=== PATIENT | female | born 1950 | race Caucasian/White ===

== ENCOUNTER 2019-01-15 14:30 | Inpatient (IN) | payer MEDICARE, BC ==
[~2019-01-15] VITALS: Ht 167.6 cm; Wt 71.9 kg
[2019-01-15] VITALS (8 sets, daily range): BP systolic 114–125; BP diastolic 53–62
[~2019-01-15 14:30] MED LIST: LIDOcaine 2% (20 mg/ml) 5ml cardiac syringe ONE; LISI40TA4 PO; LOP25T PO; MAGNESIUM SULFATE 4 MEQ/ML (5gm/10ml) injection ONE; NOR5T PO; PRAV10TA38 PO; SUFENTANIL CITRATE 50 MCG/ML 2ml ampule IV ONE; albumin (human) 25% 100 ML IV solution IV ONE; aminocaproic acid 250 MG/1 ML inj. ONE; calcium chloride 100 MG/1 ML inj IV ONE; heparin 1,000 units/ml 10ml inj ONE; heparin 10,000 units/1 ML INJ ONE; methylPREDNISolone sod. succ. 500mg inj ONE; midazolam 2 mg/2 ml injection ONE; phenylephrine 10mg/ml inj. ONE; potassium Cl 2 mEq/ml inj IV ONE; sodium bicarbonate (8.4%) 1 mEq/ml syringe ONE
[2019-01-15] MEDS ORDERED: INSULIN R 100 UNIT in NS 100ML (1 UNIT/1 ML) BAG IV ONE (14:45)
[2019-01-15] MEDS ORDERED: DOPamine/D5W 400mg/250ml bag IV ONE (14:45)
[2019-01-15] MEDS ORDERED: protamine sulf. 10mg/ml inj. IV ONE (14:45)
[2019-01-15] MEDS ORDERED: rocuronium 10mg/ml inj IV ONE (14:45)
[2019-01-15] MEDS ORDERED: nitroGLYCERIN in D5W 50mg/250ml (Tridil) infusion IV ONE (14:45)
[2019-01-15] MEDS ORDERED: isoflurane 100ml inhalation liquid IH ONE (14:45)
[2019-01-15] MEDS: insulin regular, human 100 UNIT in normal saline 100ml IV soln 99 ML IV SCH ×2 (15:45)
[2019-01-15] MEDS ORDERED: dextrose 50%-water 50ml dispensing syringe IV PRN ×2 (15:45→19:35)
[2019-01-15] MEDS ORDERED: insulin Lispro (HumaLOG) vial - multi-dose SQ PRN (15:50)
[2019-01-15] MEDS: esmolol/sodium cl bag 250 ML IV SCH (15:55)
[2019-01-15 15:56] LABS: ABG BASE EXCESS -3.2 mmol/L (-2.0-3.0); ABG HCO3 20.8 mmol/L (22.0-26.0); ABG OXYGEN SATURATION 99.8 % (95-98); ABG PCO2 33.9 mmHg (35.0-45.0); ABG PH 7.406 (7.350-7.450); ABG PO2 349.6 mmHg (60.0-100.0); CL (ABG) 107 mmol/L (99-107); FCOHb 0.2 % (0.5-1.5); FO2Hb 99.6 % (94-100); GLUCOSE (ABG) 107 mg/dl (70-105); IONIZED CA (ABG) 1.08 mmol/L (1.03-1.32); K (ABG) 5.8 mmol/L (3.3-5.1); NA (ABG) 136 mmol/L (135-145); TOTAL HEMOGLOBIN 11.4 G/dl (12.0-16.0)
[2019-01-15 16:45] LABS: ABG HCO3 22.3 mmol/L (22.0-26.0); ABG OXYGEN SATURATION 99.1 % (95-98); ABG PCO2 35.6 mmHg (35.0-45.0); ABG PH 7.415 (7.350-7.450); ABG PO2 364.6 mmHg (60.0-100.0); CL (ABG) 104 mmol/L (99-107); FCOHb 0.4 % (0.5-1.5); FMetHb 0.6 % (0.3-1.12); FO2Hb 98.1 % (94-100); GLUCOSE (ABG) 106 mg/dl (70-105); IONIZED CA (ABG) 0.89 mmol/L (1.03-1.32); NA (ABG) 134 mmol/L (135-145); TOTAL HEMOGLOBIN 7.2 G/dl (12.0-16.0)
[2019-01-15] MEDS ORDERED: ipratropium/albuterol 3ml nebule IH PRN (17:30)
[2019-01-15 17:46] LABS: ABG BASE EXCESS VENOUS -8.5 mmol/L; ABG HCO3 VENOUS 21.3 mmol/L; ABG PCO2 VENOUS 71.4 mmHg; ABG PO2 VENOUS 56.5 mmHg; CL (ABG) 101 mmol/L (99-107); FCOHb VENOUS 0.3 %; FHHb VENOUS 18.8 %; FMetHb VENOUS 0.8 %; FO2Hb VENOUS 80.1 %; GLUCOSE (ABG) 184 mg/dl (70-105); IONIZED CA (ABG) 0.82 mmol/L (1.03-1.32); K (ABG) 5.9 mmol/L (3.3-5.1); NA (ABG) 148 mmol/L (135-145); TOTAL HEMOGLOBIN 8.8 G/dl (12.0-16.0)
[2019-01-15 18:01] LABS: ABG BASE EXCESS -4.9 mmol/L (-2.0-3.0); ABG HCO3 19.3 mmol/L (22.0-26.0); ABG OXYGEN SATURATION 99.1 % (95-98); ABG PCO2 31.9 mmHg (35.0-45.0); ABG PH 7.399 (7.350-7.450); ABG PO2 432.1 mmHg (60.0-100.0); CL (ABG) 101 mmol/L (99-107); FCOHb 0.2 % (0.5-1.5); FMetHb 0.8 % (0.3-1.12); FO2Hb 98.1 % (94-100); GLUCOSE (ABG) 181 mg/dl (70-105); IONIZED CA (ABG) 1.29 mmol/L (1.03-1.32); K (ABG) 5.7 mmol/L (3.3-5.1); NA (ABG) 130 mmol/L (135-145)
[2019-01-15 18:10] LABS: ABG BASE EXCESS -1.4 mmol/L (-2.0-3.0); ABG HCO3 21.3 mmol/L (22.0-26.0); ABG OXYGEN SATURATION 99.3 % (95-98); ABG PCO2 28.2 mmHg (35.0-45.0); ABG PH 7.497 (7.350-7.450); ABG PO2 416.9 mmHg (60.0-100.0); CL (ABG) 100 mmol/L (99-107); FCOHb 0.3 % (0.5-1.5); FMetHb 0.6 % (0.3-1.12); FO2Hb 98.4 % (94-100); GLUCOSE (ABG) 151 mg/dl (70-105); IONIZED CA (ABG) 1.07 mmol/L (1.03-1.32); K (ABG) 5.9 mmol/L (3.3-5.1); NA (ABG) 134 mmol/L (135-145)
[2019-01-15 18:56] LABS: ABG BASE EXCESS VENOUS -1.9 mmol/L; ABG HCO3 VENOUS 23.9 mmol/L; ABG PCO2 VENOUS 45.6 mmHg; ABG PO2 VENOUS 33.5 mmHg; CL (ABG) 104 mmol/L (99-107); FCOHb VENOUS 0.5 %; FHHb VENOUS 37.8 %; FMetHb VENOUS 0.7 %; GLUCOSE (ABG) 140 mg/dl (70-105); IONIZED CA (ABG) 0.98 mmol/L (1.03-1.32); K (ABG) 4.9 mmol/L (3.3-5.1); NA (ABG) 138 mmol/L (135-145); TOTAL HEMOGLOBIN 10.4 G/dl (12.0-16.0)
[2019-01-15] MEDS ORDERED: HUMAN PROTHROMBIN COMPLEX PCC IV ONE (19:00)
[2019-01-15] MEDS ORDERED: NORepinephrine 8mg/ 250ml NS 250 ML IV PRN (19:31)
[2019-01-15] MEDS ORDERED: nitroGLYCERIN-Tridil 50MG/D5W 250 ML IV PRN (19:31)
[2019-01-15] MEDS ORDERED: niCARDipine-NS 40mg/200ml IVPB 200 ML IV PRN (19:31)
[2019-01-15] MEDS ORDERED: Neutra Phos packet PO PRN (19:35)
[2019-01-15] MEDS ORDERED: potassium Cl 20 mEq SR tablet PO PRN (19:35)
[2019-01-15] MEDS ORDERED: pantoprazole 40 MG vial IV ONE (19:35)
[2019-01-15] MEDS ORDERED: HYDROcodone/acetaminophen 10/325mg tab PO PRN ×2 (19:35)
[2019-01-15] MEDS ORDERED: magnesium 4gm in 100ml NS 100 ML IV PRN (19:35)
[2019-01-15] MEDS ORDERED: magnesium hydroxide 30ml (MOM) UD suspension PO PRN (19:35)
[2019-01-15] MEDS ORDERED: insulin regular, human inj. 100 UNITS in normal saline 100ml IV soln 100 ML IV SCH ×2 (19:35)
[2019-01-15] MEDS ORDERED: ondansetron/PF 4mg/2ml inj IV PRN (19:35)
[2019-01-15] MEDS ORDERED: acetaminophen 325mg tablet PO PRN (19:35)
[2019-01-15] MEDS ORDERED: metoclopramide 5 mg/ml inj IV PRN (19:35)
[2019-01-15] MEDS ORDERED: sodium phosphate inj. 15 MMOL in dextrose 5%-water 150 ML IV PRN (19:35)
[2019-01-15] MEDS ORDERED: sodium phosphate inj. 30 MMOL in dextrose 5%-water 250 ML IV PRN (19:35)
[2019-01-15] MEDS ORDERED: mupirocin 2% ointment 22GM NS SCH (20:00)
[2019-01-15] MEDS ORDERED: docusate sod 100mg capsule PO SCH (20:00)
--- NOTE | 2019-01-15 20:00 | NUR ---
Received to room 2014, accompanied by MDs and surgical crew. Placed on ventilator, to cardiac/vascular sonographer, arterial line and PA line pressure monitored. Chest tubes to suction at 20 cm. Burton cath to gravity drainage. Dressings are dry and intact. See assessment record. All vasoactive drugs are infusing via central line.
[2019-01-15] MEDS ORDERED: midazolam 100mg in NS 100ml 100 ML IV PRN (20:36)
[2019-01-15] MEDS: FENTANYL-0.9 % NACL/PF 100 ML IV PRN (20:48)
[2019-01-15 20:52] LABS: BASOPHILS % (AUTO) 0.2 % (0-1); EOSINOPHILS % (AUTO) 0.4 % (0-6); LYMPHOCYTES # (AUTO) 0.2 X10'3 (1.1-4.8); LYMPHOCYTES % (AUTO) 3.8 % (21-51); MEAN CORPUSCULAR HEMOGLOBIN 32.5 PG (27.0-31.0); MEAN CORPUSCULAR HGB CONC 34.3 g/dL (33.0-36.5); MEAN CORPUSCULAR VOLUME 94.8 FL (78-98); MEAN PLATELET VOLUME 7.6 FL (7.4-10.4); MONOCYTES # (AUTO) 0.4 X10'3 (0-0.9); MONOCYTES % (AUTO) 7.6 % (2-12); NEUTROPHILS # (AUTO) 4.9 X10'3 (1.8-7.7); PLATELET COUNT 94 X10'3 (140-440); RED BLOOD COUNT 1.84 X10'6 (4.20-5.60); RED CELL DISTRIBUTION WIDTH 14.3 % (11.5-14.5); WHITE BLOOD COUNT 5.6 X10'3 (4.5-11.0)
[2019-01-15 20:59] LABS: ALANINE AMINOTRANSFERASE 59 U/L (12-78); ALBUMIN/GLOBULIN RATIO 1.2 (1.1-1.5); ALKALINE PHOSPHATASE 28 IU/L (46-116); ANION GAP 12 (8-16); ASPARTATE AMINO TRANSFERASE 75 U/L (10-37); BILIRUBIN,TOTAL 0.8 MG/DL (0.1-1.0); BLOOD UREA NITROGEN 20 MG/DL (7-18); BUN/CREATININE RATIO 11.8 (6.6-38.0); CALCIUM 7.7 MG/DL (8.5-10.1); CHLORIDE 110 MMOL/L (99-107); GLUCOSE 85 MG/DL (70-104); MAGNESIUM 3.2 MG/DL (1.5-2.4); SODIUM 146 MMOL/L (135-145); TOTAL CARBON DIOXIDE 24.4 MMOL/L (24-32); TOTAL PROTEIN 3.7 G/DL (6.4-8.2); eGFR 30 ML/MIN
[2019-01-15 21:02] LABS: HEMATOCRIT 17.4 % (35.0-45.0)
[2019-01-15 21:05] LABS: ABG BASE EXCESS 0.3 mmol/L (-2.0-3.0); ABG HCO3 23.2 mmol/L (22.0-26.0); ABG OXYGEN SATURATION 98.2 % (95-98); ABG PCO2 (T) 26.9 mmHg (32.0-45.0); ABG PH (T) 7.546 (7.350-7.450); ABG PO2 (T) 139.4 mmHg (83-108); FCOHb 0.3 % (0.5-1.5); FMetHb 0.1 % (0.3-1.12); FO2Hb 97.8 % (94-100); MINUTE VOLUME 6 L/min; PATIENT TEMPERATURE 34.9; PEEP 5 cm H2O; RESPIRATORY RATE 12 b/min; RESPIRATORY RATE (OBSERVED) 12 b/min; TIDAL VOLUME 600 mL; TOTAL HEMOGLOBIN 6.4 G/dl (12.0-16.0)
[2019-01-15 21:37] LABS: INR 1.3 INR; PARTIAL THROMBOPLASTIN TIME 32 SECONDS (22-32)
[2019-01-15] MEDS: potassium Cl 20mEq/100mL bag 100 ML IV PRN ×2 (22:05→23:17)
[2019-01-15] MEDS: docusate sodium 100mg/10ml UD cup PO SCH (22:11)
[2019-01-15] MEDS: vancomycin/NS 1 GM ADD-VANTAGE 250 ML IV SCH (22:11)
[2019-01-15] MEDS: sodium chloride 0.45% 1,000 ML IV SCH (22:12)
[2019-01-15] MEDS: mupirocin 2% nasal ointment 1gm UD NS SCH (22:34)
[2019-01-15] MEDS: gabapentin 300mg capsule PO SCH (22:36)
[2019-01-15] MEDS: nitroPRUSSIDE in NS 100 ML IV SCH (23:28)
[2019-01-16] VITALS (26 sets, daily range): BP systolic 100–139; BP diastolic 44–69
[2019-01-16] MEDS: ceFAZolin 1GM/D5W- ADD-VANTAGE 50 ML IV SCH ×3 (00:32→16:18)
[2019-01-16] MEDS: esmolol/sodium cl bag 250 ML IV SCH ×3 (02:20→20:40)
[2019-01-16 02:21] LABS: BASOPHILS % (AUTO) 0.1 % (0-1); EOSINOPHILS % (AUTO) 0 % (0-6); HEMATOCRIT 27.2 % (35.0-45.0); HEMOGLOBIN 9.4 g/dl (12.0-16.0); LYMPHOCYTES # (AUTO) 0.3 X10'3 (1.1-4.8); LYMPHOCYTES % (AUTO) 3.5 % (21-51); MEAN CORPUSCULAR HEMOGLOBIN 31.3 PG (27.0-31.0); MEAN CORPUSCULAR HGB CONC 34.5 g/dL (33.0-36.5); MEAN CORPUSCULAR VOLUME 90.8 FL (78-98); MEAN PLATELET VOLUME 8.1 FL (7.4-10.4); MONOCYTES # (AUTO) 0.8 X10'3 (0-0.9); MONOCYTES % (AUTO) 9.2 % (2-12); NEUTROPHILS # (AUTO) 7.5 X10'3 (1.8-7.7); NEUTROPHILS % (AUTO) 87.2 % (42-75); PLATELET COUNT 92 X10'3 (140-440); RED BLOOD COUNT 2.99 X10'6 (4.20-5.60); RED CELL DISTRIBUTION WIDTH 15.2 % (11.5-14.5); WHITE BLOOD COUNT 8.6 X10'3 (4.5-11.0)
[2019-01-16] MEDS: albumin (Human) 5% 250ml 250 ML IV PRN ×3 (02:21→13:51)
[2019-01-16 02:41] LABS: INR 1.2 INR; PARTIAL THROMBOPLASTIN TIME 31 SECONDS (22-32)
[2019-01-16 02:47] LABS: ALANINE AMINOTRANSFERASE 86 U/L (12-78); ALBUMIN 2.3 G/DL (3.4-5.0); ALBUMIN/GLOBULIN RATIO 1.2 (1.1-1.5); ALKALINE PHOSPHATASE 34 IU/L (46-116); ANION GAP 8 (8-16); ASPARTATE AMINO TRANSFERASE 123 U/L (10-37); BILIRUBIN,TOTAL 1.2 MG/DL (0.1-1.0); BLOOD UREA NITROGEN 25 MG/DL (7-18); BUN/CREATININE RATIO 13.8 (6.6-38.0); CHLORIDE 112 MMOL/L (99-107); CREATININE 1.81 MG/DL (0.40-0.90); GLUCOSE 114 MG/DL (70-104); POTASSIUM 4.8 MMOL/L (3.5-5.1); SODIUM 145 MMOL/L (135-145); TOTAL CARBON DIOXIDE 25.4 MMOL/L (24-32); TOTAL PROTEIN 4.3 G/DL (6.4-8.2); eGFR 28 ML/MIN
[2019-01-16 03:11] LABS: MAGNESIUM 3.1 MG/DL (1.5-2.4); PHOSPHORUS 2.7 MG/DL (2.3-4.5)
[2019-01-16 03:55] LABS: ABG BASE EXCESS 0.7 mmol/L (-2.0-3.0); ABG HCO3 24.8 mmol/L (22.0-26.0); ABG OXYGEN SATURATION 94.2 % (95-98); ABG PCO2 (T) 36.4 mmHg (32.0-45.0); ABG PH (T) 7.448 (7.350-7.450); ABG PO2 (T) 73.6 mmHg (83-108); FCOHb 0.3 % (0.5-1.5); FMetHb 0.3 % (0.3-1.12); FO2Hb 93.6 % (94-100); MINUTE VOLUME 5 L/min; PATIENT TEMPERATURE 36.3; PEEP 5 cm H2O; RESPIRATORY RATE 8 b/min; RESPIRATORY RATE (OBSERVED) 8 b/min; TIDAL VOLUME 600 mL; TOTAL HEMOGLOBIN 9.6 G/dl (12.0-16.0)
--- NOTE | 2019-01-16 06:38 | NUR ---
Problems reprioritized. Patient report given, questions answered & plan of care reviewed with Paty NEUMANN. Latest CI 2.0. Pt given 2PRBC and 2 Alb in my 12 hr shift. No blood or electrolyte replacement needed at 6hr lab draw. Sedation off at 0130, remains off. Pt moves extremities with painful stimuli. Grimaces with oral care, has not woken up enough to follow commands.
--- NOTE | 2019-01-16 06:56 | NUR ---
Patient in room CICU 2013. I have received report from NEL Huffman and had the opportunity to ask questions and assume patient care.
[2019-01-16] MEDS: atorvastatin 10mg tablet PO SCH (07:27)
[2019-01-16] MEDS: docusate sodium 100mg/10ml UD cup PO SCH ×2 (07:27→20:40)
[2019-01-16] MEDS: aspirin 325mg tablet, delayed-release (Ecotrin) PO SCH (07:27)
[2019-01-16] MEDS: gabapentin 300mg capsule PO SCH (07:27)
[2019-01-16] MEDS: metoprolol tartrate 12.5mg (1/2 tablet) PO SCH ×2 (07:28→20:00)
[2019-01-16] MEDS: mupirocin 2% nasal ointment 1gm UD NS SCH ×2 (07:28→20:40)
[2019-01-16] MEDS: vancomycin/NS 1 GM ADD-VANTAGE 250 ML IV SCH ×2 (07:30→20:39)
[2019-01-16] MEDS: nitroPRUSSIDE in NS 100 ML IV SCH ×2 (08:10→17:24)
[2019-01-16] MEDS: insulin Lispro (HumaLOG) vial - multi-dose SQ SCH ×3 (08:26→18:00)
--- NOTE | 2019-01-16 09:28 | NUR ---
pt is intubated, off sedation, pt spontaneously opens eyes but not following verbal commands, pt is moving extremities. pupils reacting to light slowly. Richard arrived on unit and assessed pt, updated on pt condition, CT x2 draining serosang drainage, titrating vasoactive gtt to keep SBP < 120. updated family on plan of care.
--- NOTE | 2019-01-16 10:45 | NUR ---
Dr. Hu arrived on unit and assessed pt, updated on pt condition, order received to keep SBP < 140, okay to remove PA line and to wean to extubate per protocol.
--- NOTE | 2019-01-16 11:29 | NUR ---
TF consult: OGTF to start today per MD. 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 CTx2 w/ 640ml output since placed 2 days ago. MAP 72. Pt hx prediabetes w/ no A1C yet r/t metabolic status per RN; will need A1C prior to d/c. Will monitor for TF tolerance; recs below. Rec: 1. OGTF using Vital HP at 70ml/hr goal; to provide 1680ml fluid, 1411ml free water, 1680kcals, and 147g protein. Initiate at 20ml/hr and advance 20ml Q8 to goal as tolerated. 2. water flush 200ml Q4 3. prealbumin Q /, daily wts 4. routine bowel care 5. A1C prior to d/c once stable given hx prediabetes 6. monitor for signs of refeeding syndrome Addendum: 01/16/19 at [address] Amended: Links added.
[2019-01-16 12:24] LABS: ALBUMIN 2.9 G/DL (3.4-5.0); ANION GAP 5 (8-16); BLOOD UREA NITROGEN 33 MG/DL (7-18); BUN/CREATININE RATIO 14.3 (6.6-38.0); CALCIUM 8.3 MG/DL (8.5-10.1); CHLORIDE 111 MMOL/L (99-107); GLUCOSE 124 MG/DL (70-104); POTASSIUM 4.9 MMOL/L (3.5-5.1); SODIUM 144 MMOL/L (135-145); TOTAL CARBON DIOXIDE 27.9 MMOL/L (24-32); eGFR 21 ML/MIN
[2019-01-16 12:29] LABS: HEMOGLOBIN A1C 5.8 % (4.5-6.2)
--- NOTE | 2019-01-16 12:50 | NUR ---
PA line to right Subclavian removed under aseptic technique, pressure held for 15min. pressure dressing applied and in use, CVL dressing reapplied. pt tolerated procedure well with no discomfort.
[2019-01-16 14:45] LABS: PHOSPHORUS 3.8 MG/DL (2.3-4.5)
[2019-01-16] MEDS: insulin regular, human 100 UNIT in normal saline 100ml IV soln 99 ML IV SCH ×2 (15:45)
--- NOTE | 2019-01-16 18:27 | NUR ---
Problems reprioritized. Patient report given, questions answered & plan of care reviewed with NEL Huffman.
--- NOTE | 2019-01-16 18:30 | NUR ---
Patient in room CICU 2013. I have received report from Paty NEUMANN and had the opportunity to ask questions and assume patient care.
[2019-01-17] VITALS (31 sets, daily range): BP systolic 109–151; BP diastolic 42–58
[2019-01-17] MEDS: ceFAZolin 1GM/D5W- ADD-VANTAGE 50 ML IV SCH ×2 (00:32→07:27)
[2019-01-17] MEDS: nitroPRUSSIDE in NS 100 ML IV SCH (02:38)
[2019-01-17 02:43] LABS: BASOPHILS % (AUTO) 0.1 % (0-1); EOSINOPHILS % (AUTO) 0 % (0-6); HEMOGLOBIN 7.3 g/dl (12.0-16.0); LYMPHOCYTES # (AUTO) 0.6 X10'3 (1.1-4.8); MEAN CORPUSCULAR HGB CONC 33.9 g/dL (33.0-36.5); MONOCYTES # (AUTO) 1.4 X10'3 (0-0.9); RED BLOOD COUNT 2.34 X10'6 (4.20-5.60)
[2019-01-17 02:45] LABS: LYMPHOCYTES % (AUTO) 3.8 % (21-51); MEAN CORPUSCULAR HEMOGLOBIN 30.9 PG (27.0-31.0); MEAN CORPUSCULAR VOLUME 91.2 FL (78-98); MEAN PLATELET VOLUME 9.9 FL (7.4-10.4); MONOCYTES % (AUTO) 9.4 % (2-12); NEUTROPHILS # (AUTO) 12.7 X10'3 (1.8-7.7); NEUTROPHILS % (AUTO) 86.7 % (42-75); PLATELET COUNT 76 X10'3 (140-440); RED CELL DISTRIBUTION WIDTH 16.1 % (11.5-14.5); WHITE BLOOD COUNT 14.6 X10'3 (4.5-11.0)
[2019-01-17 02:53] LABS: ALBUMIN 2.8 G/DL (3.4-5.0); ANION GAP 12 (8-16); BLOOD UREA NITROGEN 48 MG/DL (7-18); BUN/CREATININE RATIO 16.8 (6.6-38.0); CALCIUM 8.4 MG/DL (8.5-10.1); CHLORIDE 107 MMOL/L (99-107); CREATININE 2.85 MG/DL (0.40-0.90); GLUCOSE 159 MG/DL (70-104); MAGNESIUM 2.9 MG/DL (1.5-2.4); POTASSIUM 4.5 MMOL/L (3.5-5.1); SODIUM 142 MMOL/L (135-145); TOTAL CARBON DIOXIDE 23.5 MMOL/L (24-32); eGFR 16 ML/MIN
[2019-01-17 02:57] LABS: HEMATOCRIT 21.4 % (35.0-45.0)
--- NOTE | 2019-01-17 03:48 | NUR ---
When Pt awake she actively moves her left arm, trying to lift her hand to her face. She will pull up both legs with stimuli to her feet but I have not seen her move her Right arm to stimuli or otherwise. No sedation since 01/16, pt more awake but not following commands.
[2019-01-17 03:51] LABS: ABG BASE EXCESS -0.3 mmol/L (-2.0-3.0); ABG HCO3 22.9 mmol/L (22.0-26.0); ABG PCO2 (T) 32.3 mmHg (32.0-45.0); ABG PH (T) 7.472 (7.350-7.450); ABG PO2 (T) 65.4 mmHg (83-108); FCOHb 0.3 % (0.5-1.5); FMetHb 0.3 % (0.3-1.12); FO2Hb 89.5 % (94-100); MINUTE VOLUME 7 L/min; PEEP 5 cm H2O; RESPIRATORY RATE 8 b/min; RESPIRATORY RATE (OBSERVED) 13 b/min; TIDAL VOLUME 600 mL; TOTAL HEMOGLOBIN 7.9 G/dl (12.0-16.0)
[2019-01-17 05:06] LABS: ACTIVATED CLOTTING TIME 875 SEC (101-148)
[2019-01-17 05:06] LABS: ACTIVATED CLOTTING TIME 710 SEC (101-148)
[2019-01-17 05:06] LABS: ACTIVATED CLOTTING TIME 126 SEC (101-148)
[2019-01-17] MEDS ORDERED: AMLO5TAB16 PO (06:00)
--- NOTE | 2019-01-17 06:30 | NUR ---
Patient in room CICU 2013. I have received report from Armida NEUMANN and had the opportunity to ask questions and assume patient care.
[2019-01-17] MEDS: pantoprazole 40 MG vial IV SCH (07:27)
[2019-01-17] MEDS: docusate sodium 100mg/10ml UD cup PO SCH ×2 (07:27→19:27)
[2019-01-17] MEDS: atorvastatin 10mg tablet PO SCH (07:28)
[2019-01-17] MEDS: aspirin 325mg tablet, delayed-release (Ecotrin) PO SCH (07:28)
[2019-01-17] MEDS: metoprolol tartrate 12.5mg (1/2 tablet) PO SCH ×2 (07:28→19:27)
[2019-01-17] MEDS ORDERED: pantoprazole 40mg Tablet.DR PO SCH (07:30)
[2019-01-17] MEDS: mupirocin 2% nasal ointment 1gm UD NS SCH (07:56)
[2019-01-17] MEDS: insulin Lispro (HumaLOG) vial - multi-dose SQ SCH ×2 (09:00→13:00)
[2019-01-17 09:24] LABS: BASOPHILS % (AUTO) 0.1 % (0-1); EOSINOPHILS % (AUTO) 0 % (0-6); HEMATOCRIT 23.3 % (35.0-45.0); HEMOGLOBIN 7.8 g/dl (12.0-16.0); LYMPHOCYTES # (AUTO) 0.5 X10'3 (1.1-4.8); LYMPHOCYTES % (AUTO) 4.1 % (21-51); MEAN CORPUSCULAR HEMOGLOBIN 30.9 PG (27.0-31.0); MEAN CORPUSCULAR HGB CONC 33.6 g/dL (33.0-36.5); MEAN PLATELET VOLUME 9.8 FL (7.4-10.4); MONOCYTES # (AUTO) 1.2 X10'3 (0-0.9); MONOCYTES % (AUTO) 8.7 % (2-12); NEUTROPHILS # (AUTO) 11.5 X10'3 (1.8-7.7); NEUTROPHILS % (AUTO) 87.1 % (42-75); PLATELET COUNT 64 X10'3 (140-440); RED BLOOD COUNT 2.53 X10'6 (4.20-5.60); RED CELL DISTRIBUTION WIDTH 15.5 % (11.5-14.5); WHITE BLOOD COUNT 13.2 X10'3 (4.5-11.0)
--- NOTE | 2019-01-17 10:00 | NUR ---
Patient's recheck Hemoglobin 7.8 after 1 unit of blood. 1 unit of PRBC's ordered and administered. HGb 9.0
[2019-01-17 10:57] LABS: K (ABG) 6.7 mmol/L (3.3-5.1)
[2019-01-17 11:17] LABS: CLARITY,URINE CLEAR (Clear); COLOR,URINE YELLOW (Yellow); GLUCOSE, URINE NEGATIVE (Neg); KETONES,URINE TRACE mg/dl (Neg); LEUKOCYTE ESTERASE ,URINE NEGATIVE (Neg); NITRITES, URINE NEGATIVE (Neg); OCCULT BLOOD,URINE LARGE (Neg); PROTEIN,URINE TRACE mg/dl (Neg); UROBILINOGEN,URINE 0.2 E.U/dL (0.2-1.0)
[2019-01-17 11:21] LABS: UA COLLECTION TYPE FOLEY CATH
[2019-01-17 11:23] LABS: SODIUM,URINE RANDOM < 15 MEQ/L
[2019-01-17 11:26] LABS: BACTERIA,URINE NONE SEEN /HPF (Neg); RBC,URINE 0-2 /HPF (0-2); WBC,URINE 0-4 /HPF (0-4)
[2019-01-17 11:27] LABS: SQUAMOUS EPITHELIAL CELL,UR FEW /LPF (FEW)
[2019-01-17 11:59] LABS: UA EOSINOPHILS NO EOS /HPF
[2019-01-17] MEDS: morphine 4 MG/ML inj SYRINge IV PRN ×4 (12:12→23:02)
--- NOTE | 2019-01-17 12:30 | NUR ---
Patient to CT scanner on monitor. Remained stable.
[2019-01-17] MEDS: sodium chloride 0.45% 1,000 ML IV SCH (13:11)
[2019-01-17] MEDS: normal saline 1000ml 1,000 ML IV SCH ×2 (13:46→20:55)
[2019-01-17 13:57] LABS: BASOPHILS % (AUTO) 0.1 % (0-1); EOSINOPHILS % (AUTO) 0 % (0-6); HEMATOCRIT 26.3 % (35.0-45.0); LYMPHOCYTES # (AUTO) 0.6 X10'3 (1.1-4.8); LYMPHOCYTES % (AUTO) 4.9 % (21-51); MEAN CORPUSCULAR HEMOGLOBIN 30.6 PG (27.0-31.0); MEAN CORPUSCULAR HGB CONC 34.2 g/dL (33.0-36.5); MEAN CORPUSCULAR VOLUME 89.5 FL (78-98); MEAN PLATELET VOLUME 9.7 FL (7.4-10.4); MONOCYTES # (AUTO) 1.3 X10'3 (0-0.9); MONOCYTES % (AUTO) 10.1 % (2-12); NEUTROPHILS # (AUTO) 10.9 X10'3 (1.8-7.7); NEUTROPHILS % (AUTO) 84.9 % (42-75); PLATELET COUNT 60 X10'3 (140-440); RED BLOOD COUNT 2.94 X10'6 (4.20-5.60); RED CELL DISTRIBUTION WIDTH 15.7 % (11.5-14.5); WHITE BLOOD COUNT 12.9 X10'3 (4.5-11.0)
--- NOTE | 2019-01-17 18:30 | NUR ---
Patient in room CICU 2013. I have received report from Diane NEUMANN and had the opportunity to ask questions and assume patient care.
--- NOTE | 2019-01-17 23:10 | NUR ---
pt extremely aggiated will medicate with ordered prn morphine, vital signs stable
--- NOTE | 2019-01-17 23:49 | NUR ---
Patient still aggitated and kicking legs in bed and lifting her bum off the bed, called DORA pereira, she stated to re start the fentanyl low dose. vital signs stable
[2019-01-17] MEDS: FENTANYL-0.9 % NACL/PF 100 ML IV PRN (23:51)
[2019-01-18] VITALS (24 sets, daily range): BP systolic 113–144; BP diastolic 44–59
[2019-01-18 02:40] LABS: BASOPHILS % (AUTO) 0 % (0-1); EOSINOPHILS % (AUTO) 0 % (0-6); HEMATOCRIT 24.9 % (35.0-45.0); HEMOGLOBIN 8.5 g/dl (12.0-16.0); LYMPHOCYTES # (AUTO) 0.6 X10'3 (1.1-4.8); LYMPHOCYTES % (AUTO) 5.3 % (21-51); MEAN CORPUSCULAR HEMOGLOBIN 30.9 PG (27.0-31.0); MEAN CORPUSCULAR HGB CONC 34.2 g/dL (33.0-36.5); MEAN CORPUSCULAR VOLUME 90.4 FL (78-98); MEAN PLATELET VOLUME 9.9 FL (7.4-10.4); MONOCYTES # (AUTO) 0.9 X10'3 (0-0.9); MONOCYTES % (AUTO) 8.4 % (2-12); NEUTROPHILS # (AUTO) 9.3 X10'3 (1.8-7.7); NEUTROPHILS % (AUTO) 86.3 % (42-75); PLATELET COUNT 55 X10'3 (140-440); RED BLOOD COUNT 2.76 X10'6 (4.20-5.60); RED CELL DISTRIBUTION WIDTH 15.9 % (11.5-14.5); WHITE BLOOD COUNT 10.7 X10'3 (4.5-11.0)
[2019-01-18 02:47] LABS: ALBUMIN 2.2 G/DL (3.4-5.0); ANION GAP 6 (8-16); BLOOD UREA NITROGEN 57 MG/DL (7-18); BUN/CREATININE RATIO 29.1 (6.6-38.0); CALCIUM 7.1 MG/DL (8.5-10.1); CHLORIDE 109 MMOL/L (99-107); CREATININE 1.96 MG/DL (0.40-0.90); GLUCOSE 120 MG/DL (70-104); SODIUM 141 MMOL/L (135-145); TOTAL CARBON DIOXIDE 25.8 MMOL/L (24-32); eGFR 25 ML/MIN
[2019-01-18 03:00] LABS: ABG BASE EXCESS -0.5 mmol/L (-2.0-3.0); ABG HCO3 23.6 mmol/L (22.0-26.0); ABG OXYGEN SATURATION 92.9 % (95-98); ABG PH (T) 7.425 (7.350-7.450); ABG PO2 (T) 73.7 mmHg (83-108); FCOHb 0.3 % (0.5-1.5); FMetHb 0.1 % (0.3-1.12); FO2Hb 92.5 % (94-100); MINUTE VOLUME 7 L/min; PATIENT TEMPERATURE 37.5; PEEP 5 cm H2O; RESPIRATORY RATE 8 b/min; RESPIRATORY RATE (OBSERVED) 12 b/min; TIDAL VOLUME 600 mL; TOTAL HEMOGLOBIN 9.2 G/dl (12.0-16.0)
[2019-01-18] MEDS: normal saline 1000ml 1,000 ML IV SCH ×4 (03:07→23:02)
--- NOTE | 2019-01-18 06:25 | NUR ---
Problems reprioritized. Patient report given, Paty NEUMANN questions answered & plan of care reviewed with .
--- NOTE | 2019-01-18 06:30 | NUR ---
Patient in room CICU 2013. I have received report from NEL Gilbert and had the opportunity to ask questions and assume patient care.
[2019-01-18] MEDS: atorvastatin 10mg tablet PO SCH (07:40)
[2019-01-18] MEDS: pantoprazole 40 MG vial IV SCH (07:40)
[2019-01-18] MEDS: docusate sodium 100mg/10ml UD cup PO SCH ×2 (07:41→20:25)
[2019-01-18] MEDS: aspirin 325mg tablet, delayed-release (Ecotrin) PO SCH (08:00)
[2019-01-18] MEDS: metoprolol tartrate 12.5mg (1/2 tablet) PO SCH ×2 (08:00→20:25)
[2019-01-18] MEDS: potassium Cl 20mEq/100mL bag 100 ML IV PRN ×2 (08:07→09:07)
--- NOTE | 2019-01-18 09:00 | NUR ---
pt is intubated, restless and agitated when awake, opens eyes spontaneously, pupils pinpoint, react slowly to lights. following verbal commands, right arm flaccid. chest incision c/d/i. open to air. pacer wires connected, pacer turned off. Dr. Ramos and Richard Rian arrived on unit and assessed pt, updated on pt condition, MD aware of low plt and bradycardia, Aspirin and lopressor PO held for am. DARION panel order received and sent to lab. okay to wean to extubate per Dr. Ramos.
[2019-01-18 09:54] LABS: MAGNESIUM 2.3 MG/DL (1.5-2.4)
[2019-01-18 09:58] LABS: PHOSPHORUS 3.3 MG/DL (2.3-4.5)
[2019-01-18] MEDS: magnesium 2GM in 50ml NS 50 ML IV PRN (12:33)
--- NOTE | 2019-01-18 15:49 | NUR ---
rt not available for 11:00 vent check, at code. only RT available. Addendum: 01/18/19 at 1550 by Norberto Figueroa RT Amended: Links added.
--- NOTE | 2019-01-18 18:27 | NUR ---
Patient in room CICU 2013. I have received report from Paty NEUMANN and had the opportunity to ask questions and assume patient care.
--- NOTE | 2019-01-18 18:28 | NUR ---
Problems reprioritized. Patient report given, questions answered & plan of care reviewed with NEL Gilbert.
[2019-01-18] MEDS: FENTANYL-0.9 % NACL/PF 100 ML IV PRN (18:42)
--- NOTE | 2019-01-18 21:25 | NUR ---
patient restless, agitated, kicking legs in bed and moving head side to side despite a 20mcg bolus of fentanyl, vital signs stable will increase fentanyl from 50mcg to 75mcg to obtain and maintain patients comfort. Will continue to monitor
[2019-01-19] VITALS (24 sets, daily range): BP systolic 106–187; BP diastolic 39–85
[2019-01-19 02:44] LABS: BASOPHILS % (AUTO) 0.2 % (0-1); EOSINOPHILS % (AUTO) 0.5 % (0-6); LYMPHOCYTES # (AUTO) 0.5 X10'3 (1.1-4.8); MONOCYTES # (AUTO) 0.9 X10'3 (0-0.9); NEUTROPHILS # (AUTO) 6.7 X10'3 (1.8-7.7); PLATELET COUNT 60 X10'3 (140-440)
[2019-01-19 02:46] LABS: HEMATOCRIT 23.6 % (35.0-45.0); HEMOGLOBIN 8.1 g/dl (12.0-16.0); LYMPHOCYTES % (AUTO) 6.3 % (21-51); MEAN CORPUSCULAR HGB CONC 34.3 g/dL (33.0-36.5); MEAN CORPUSCULAR VOLUME 90.3 FL (78-98); MEAN PLATELET VOLUME 10.1 FL (7.4-10.4); MONOCYTES % (AUTO) 11.1 % (2-12); NEUTROPHILS % (AUTO) 81.9 % (42-75); RED BLOOD COUNT 2.61 X10'6 (4.20-5.60); RED CELL DISTRIBUTION WIDTH 15.7 % (11.5-14.5); WHITE BLOOD COUNT 8.2 X10'3 (4.5-11.0)
[2019-01-19 03:29] LABS: ANION GAP 5 (8-16); BLOOD UREA NITROGEN 49 MG/DL (7-18); BUN/CREATININE RATIO 33.6 (6.6-38.0); CALCIUM 7.5 MG/DL (8.5-10.1); CHLORIDE 112 MMOL/L (99-107); CREATININE 1.46 MG/DL (0.40-0.90); GLUCOSE 116 MG/DL (70-104); MAGNESIUM 2.2 MG/DL (1.5-2.4); PHOSPHORUS 2.2 MG/DL (2.3-4.5); SODIUM 141 MMOL/L (135-145); TOTAL CARBON DIOXIDE 23.7 MMOL/L (24-32); eGFR 36 ML/MIN
[2019-01-19] MEDS: potassium Cl oral solution 20 MEQ/15 ML PO PRN ×2 (03:52→11:01)
[2019-01-19 03:55] LABS: ABG BASE EXCESS -0.9 mmol/L (-2.0-3.0); ABG HCO3 22.9 mmol/L (22.0-26.0); ABG OXYGEN SATURATION 93.7 % (95-98); ABG PH (T) 7.435 (7.350-7.450); ABG PO2 (T) 76.5 mmHg (83-108); FCOHb 0.3 % (0.5-1.5); FMetHb 0.3 % (0.3-1.12); FO2Hb 93.1 % (94-100); MINUTE VOLUME 8 L/min; PATIENT TEMPERATURE 37.6; PEEP 5 cm H2O; RESPIRATORY RATE 8 b/min; RESPIRATORY RATE (OBSERVED) 13 b/min; TIDAL VOLUME 600 mL; TOTAL HEMOGLOBIN 9.1 G/dl (12.0-16.0)
[2019-01-19] MEDS ORDERED: magnesium 2GM in 50ml NS 50 ML IV PRN (04:05)
[2019-01-19] MEDS: magnesium 2GM in 50ml NS 50 ML IV PRN (04:07)
[2019-01-19] MEDS: normal saline 1000ml 1,000 ML IV SCH ×2 (05:50→12:22)
--- NOTE | 2019-01-19 06:27 | NUR ---
Problems reprioritized. Patient report given, questions answered & plan of care reviewed with Stephy NEUMANN.
[2019-01-19] MEDS: FENTANYL-0.9 % NACL/PF 100 ML IV PRN (07:14)
[2019-01-19] MEDS: mineral oil/petrolatum ophthal oint EACHEYE SCH ×3 (08:00→20:35)
[2019-01-19] MEDS: docusate sodium 100mg/10ml UD cup PO SCH (08:04)
[2019-01-19] MEDS: pantoprazole 40 MG vial IV SCH (08:04)
[2019-01-19] MEDS: aspirin 325mg tablet, delayed-release (Ecotrin) PO SCH (08:05)
[2019-01-19] MEDS: metoprolol tartrate 12.5mg (1/2 tablet) PO SCH (08:05)
[2019-01-19] MEDS: atorvastatin 10mg tablet PO SCH (08:05)
--- NOTE | 2019-01-19 10:00 | NUR ---
placed on spontanous tolerating well, neuro - follows basic commands, appropriate, however seems to drift and not focus, and stares at ceiling, visitors in at bedside, appears to recognize visitor, mentation seems to be brief and non sustained for long periods of time, has periods of restlessness, and drifts to sleep.
--- NOTE | 2019-01-19 11:46 | NUR ---
Reassessment: Pt remains intubated and receiving TF at goal and tolerating with residuals of 0-100 mL. Pt with weaning parameters to attempt extubation today per MD at critical care rounds. Current wt stable with admit. Recommend continuing TF until pt with average 65% PO intake with diet advancement. Will continue to follow. Rec: 1. OGTF using Vital HP at 70ml/hr goal; to provide 1680ml fluid, 1411ml free water, 1680kcals, and 147g protein. Initiate at 20ml/hr and advance 20ml Q8 to goal as tolerated. 2. water flush 200ml Q4 3. prealbumin Q /, daily wts 4. routine bowel care 5. A1C prior to d/c once stable given hx prediabetes 6. monitor for signs of refeeding syndrome 7. Advance to heart healthy CHO controlled diet s/p extubation as medically indicated Addendum: 01/19/19 at [address] Amended: Links added.
[2019-01-19] MEDS ORDERED: etomidate 2mg/ml inj. ONE (13:00)
[2019-01-19] MEDS: hydrALAZINE 20mg/ml inj. IV PRN (13:35)
[2019-01-19] MEDS ORDERED: racepinephrine 11.25mg/0.5ml nebule NEB PRN (14:30)
[2019-01-19] MEDS ORDERED: ipratropium/albuterol 3ml nebule NEB PRN (14:30)
[2019-01-19] MEDS ORDERED: naloxone 0.4 mg/ml inj IV PRN (14:30)
[2019-01-19] MEDS ORDERED: CADD PCA waste documentation MC PRN (14:30)
[2019-01-19] MEDS: HYDROmorphone/NS 1 mg/ml CADD 50 ML IV SCH ×2 (15:00→17:00)
--- NOTE | 2019-01-19 15:00 | NUR ---
extubated, anxious immediately following extubation, tachnpeic but maintaining sats on 6l/min, resp rate returning to normal rate after 10 mins, does not appear to be following commands. repositioned upright, but continues to shift own body weight and slide down bed.
--- NOTE | 2019-01-19 15:30 | NUR ---
desating, repositioned and is not tolerating spontaneous breathing, call placed to dr johns, updated on resp distress, patient stats currently 90%, tachpneic and bp elevated. 1540 bagging pt with 100 % o2, resp rate32, 1600 intubated with 8.0 ett after multiple attempts by dr johns.
[2019-01-19] MEDS ORDERED: midazolam 2 mg/2 ml injection ONE (15:44)
[2019-01-19] MEDS ORDERED: acetaminophen 325mg tablet OGT PRN (16:20)
[2019-01-19] MEDS ORDERED: Neutra Phos packet OGT PRN (16:23)
[2019-01-19] MEDS ORDERED: potassium Cl oral solution 20 MEQ/15 ML OGT PRN (16:23)
[2019-01-19] MEDS ORDERED: MIDAZolam 5mg/ml 2ml vial IV ONE (17:00)
[2019-01-19] MEDS ORDERED: etomidate 2mg/ml inj. IV ONE (17:00)
[2019-01-19] MEDS: furosemide 40mg/4ml inj IV SCH ×2 (17:54→20:36)
[2019-01-19] MEDS: propofol 1000mg/100ml bottle 100 ML IV PRN ×2 (18:39→22:51)
--- NOTE | 2019-01-19 18:40 | NUR ---
Patient very aggitated, started ordered propofol at 5mcg/kg, replaced OG tube as it was leaking, will re start tube feed. vital signs stable will continue to monitor
--- NOTE | 2019-01-19 19:22 | NUR ---
Patient in room CICU 2013. I have received report from nightman and had the opportunity to ask questions and assume patient care.
[2019-01-19] MEDS: docusate sodium 100mg/10ml UD cup OGT SCH (20:35)
[2019-01-19] MEDS: dexamethasone 4mg/ml inj IV SCH (20:36)
[2019-01-19] MEDS: metoprolol tartrate 12.5mg (1/2 tablet) OGT SCH (20:36)
[2019-01-19] MEDS: ipratropium/albuterol 3ml nebule NEB SCH (20:49)
--- NOTE | 2019-01-19 22:40 | NUR ---
OG tube replaced at beginning of shift is leaking as well, replaced with a silicone 16F, assaulted for placement and gastric contents aspirated, will re- start tube feed at half the rate
--- NOTE | 2019-01-19 23:59 | NUR ---
Patient in room CICU 2013. I have received report from Stephy NEUMANN and had the opportunity to ask questions and assume patient care.
[2019-01-20] VITALS (24 sets, daily range): BP systolic 113–152; BP diastolic 41–65
[2019-01-20] MEDS: dexamethasone 4mg/ml inj IV SCH ×4 (02:07→20:17)
[2019-01-20] MEDS: mineral oil/petrolatum ophthal oint EACHEYE SCH ×4 (02:08→20:13)
[2019-01-20 02:37] LABS: BASOPHILS % (AUTO) 0.1 % (0-1); EOSINOPHILS % (AUTO) 0.1 % (0-6); HEMATOCRIT 26.1 % (35.0-45.0); HEMOGLOBIN 8.7 g/dl (12.0-16.0); LYMPHOCYTES # (AUTO) 0.2 X10'3 (1.1-4.8); LYMPHOCYTES % (AUTO) 1.5 % (21-51); MEAN CORPUSCULAR HEMOGLOBIN 30.2 PG (27.0-31.0); MEAN CORPUSCULAR HGB CONC 33.2 g/dL (33.0-36.5); MEAN CORPUSCULAR VOLUME 91.1 FL (78-98); MEAN PLATELET VOLUME 9.6 FL (7.4-10.4); MONOCYTES # (AUTO) 0.8 X10'3 (0-0.9); MONOCYTES % (AUTO) 6.3 % (2-12); NEUTROPHILS # (AUTO) 11.8 X10'3 (1.8-7.7); PLATELET COUNT 88 X10'3 (140-440); RED BLOOD COUNT 2.87 X10'6 (4.20-5.60); RED CELL DISTRIBUTION WIDTH 15.6 % (11.5-14.5); WHITE BLOOD COUNT 12.8 X10'3 (4.5-11.0)
[2019-01-20 02:50] LABS: ALBUMIN 2.1 G/DL (3.4-5.0); ANION GAP 8 (8-16); BLOOD UREA NITROGEN 41 MG/DL (7-18); BUN/CREATININE RATIO 29.9 (6.6-38.0); CALCIUM 7.9 MG/DL (8.5-10.1); CHLORIDE 109 MMOL/L (99-107); CREATININE 1.37 MG/DL (0.40-0.90); GLUCOSE 149 MG/DL (70-104); PHOSPHORUS 3.1 MG/DL (2.3-4.5); POTASSIUM 3.9 MMOL/L (3.5-5.1); PREALBUMIN 14.1 MG/DL (19-36); SODIUM 142 MMOL/L (135-145); TOTAL CARBON DIOXIDE 24.6 MMOL/L (24-32); TRIGLYCERIDES 110 MG/DL (20-135); eGFR 38 ML/MIN
[2019-01-20] MEDS: ipratropium/albuterol 3ml nebule NEB SCH ×4 (03:03→20:31)
[2019-01-20] MEDS ORDERED: magnesium 2GM in 50ml NS 50 ML IV PRN (03:05)
[2019-01-20] MEDS: magnesium 4gm in 100ml NS 100 ML IV PRN (03:16)
[2019-01-20 03:25] LABS: ABG BASE EXCESS 0.8 mmol/L (-2.0-3.0); ABG HCO3 23.4 mmol/L (22.0-26.0); ABG OXYGEN SATURATION 91.8 % (95-98); ABG PH (T) 7.498 (7.350-7.450); FCOHb 0.3 % (0.5-1.5); FMetHb 0.3 % (0.3-1.12); FO2Hb 91.2 % (94-100); MINUTE VOLUME 9 L/min; PATIENT TEMPERATURE 37.6; PEEP 5 cm H2O; RESPIRATORY RATE 12 b/min; RESPIRATORY RATE (OBSERVED) 14 b/min; TIDAL VOLUME 600 mL; TOTAL HEMOGLOBIN 9.6 G/dl (12.0-16.0)
--- NOTE | 2019-01-20 06:17 | NUR ---
Problems reprioritized. Patient report given, questions answered & plan of care reviewed with Barak Marlow.
--- NOTE | 2019-01-20 07:26 | NUR ---
Peep turned up to [address] Ramos
[2019-01-20] MEDS: metoprolol tartrate 12.5mg (1/2 tablet) OGT SCH ×2 (08:00→20:27)
[2019-01-20] MEDS: aspirin 325mg tablet, delayed-release (Ecotrin) PO SCH (08:00)
[2019-01-20] MEDS: atorvastatin 10mg tablet OGT SCH (08:24)
[2019-01-20] MEDS: pantoprazole 40 MG vial IV SCH (08:24)
[2019-01-20] MEDS: docusate sodium 100mg/10ml UD cup OGT SCH ×2 (08:24→20:25)
[2019-01-20] MEDS: furosemide 40mg/4ml inj IV SCH ×2 (08:24→20:22)
[2019-01-20] MEDS: propofol 1000mg/100ml bottle 100 ML IV PRN (08:25)
[2019-01-20] MEDS: morphine 4 MG/ML inj SYRINge IV PRN ×2 (09:30→20:46)
[2019-01-20] MEDS: dexmedetomidin/NS 400mcg/100ml 100 ML IV SCH ×2 (09:56→20:51)
--- NOTE | 2019-01-20 11:20 | NUR ---
Able to communicate with patient now. She is much more calm when she wakes up and is able to shake her head yes and no to my questions and squeeze my hand
--- NOTE | 2019-01-20 12:04 | NUR ---
Residual 400ml. Tube feed rate reduced to 35 per protocol
--- NOTE | 2019-01-20 13:27 | NUR ---
FiO2 reduced to [address] Infante; keep sats above 90
--- NOTE | 2019-01-20 15:30 | NUR ---
Notified Dr Infante about elevated blood sugars. No need to treat at this time
--- NOTE | 2019-01-20 16:00 | NUR ---
residual greater then 250. rate reduced to 20 and on hold for one hour Addendum: 01/20/19 at 1659 by Duane Flores RN tube feed resumed at 20ml
--- NOTE | 2019-01-20 16:30 | NUR ---
Patient gave permission for mammography supervisor to come visit her. The mammography supervisor requested we find her sisters number so we can contact them. patient gave us permission to go through phone contacts, but her sisters number was not in there.
--- NOTE | 2019-01-20 18:30 | NUR ---
Patient in room CICU 2013. I have received report from Duane Flores RN and had the opportunity to ask questions and assume patient care. Pt received orally intubated #8 ETT secured with anchorfast.OGt taped secure to ETT. No distress.
[2019-01-20] MEDS: hydrALAZINE 20mg/ml inj. IV PRN (20:00)
[2019-01-21] VITALS (24 sets, daily range): BP systolic 112–152; BP diastolic 54–79
[2019-01-21] MEDS: morphine 4 MG/ML inj SYRINge IV PRN ×3 (00:02→23:47)
[2019-01-21] MEDS: mineral oil/petrolatum ophthal oint EACHEYE SCH ×4 (02:00→20:17)
[2019-01-21] MEDS: dexamethasone 4mg/ml inj IV SCH ×4 (02:00→20:16)
[2019-01-21] MEDS: ipratropium/albuterol 3ml nebule NEB SCH ×4 (03:21→21:12)
[2019-01-21 03:34] LABS: HEMATOCRIT 26.8 % (35.0-45.0); HEMOGLOBIN 9.1 g/dl (12.0-16.0); LYMPHOCYTES # (AUTO) 0.3 X10'3 (1.1-4.8); MEAN PLATELET VOLUME 9.7 FL (7.4-10.4)
[2019-01-21 03:35] LABS: ABG BASE EXCESS 5.1 mmol/L (-2.0-3.0); ABG HCO3 27.8 mmol/L (22.0-26.0); ABG OXYGEN SATURATION 89.6 % (95-98); ABG PCO2 (T) 33.3 mmHg (32.0-45.0); ABG PH (T) 7.539 (7.350-7.450); ABG PO2 (T) 53.9 mmHg (83-108); FCOHb 0.3 % (0.5-1.5); FMetHb 0.3 % (0.3-1.12); FO2Hb 89.1 % (94-100); MINUTE VOLUME 7 L/min; PATIENT TEMPERATURE 36.5; PEEP 10 cm H2O; RESPIRATORY RATE 12 b/min; RESPIRATORY RATE (OBSERVED) 12 b/min; TIDAL VOLUME 550 mL
[2019-01-21 03:38] LABS: BASOPHILS % (AUTO) 0.2 % (0-1); EOSINOPHILS % (AUTO) 0.1 % (0-6); LYMPHOCYTES % (AUTO) 2.1 % (21-51); MEAN CORPUSCULAR HEMOGLOBIN 30.9 PG (27.0-31.0); MEAN CORPUSCULAR HGB CONC 34.1 g/dL (33.0-36.5); MEAN CORPUSCULAR VOLUME 90.7 FL (78-98); MONOCYTES % (AUTO) 6.7 % (2-12); NEUTROPHILS % (AUTO) 90.9 % (42-75); PLATELET COUNT 111 X10'3 (140-440); RED BLOOD COUNT 2.96 X10'6 (4.20-5.60); RED CELL DISTRIBUTION WIDTH 15.3 % (11.5-14.5); WHITE BLOOD COUNT 14.3 X10'3 (4.5-11.0)
[2019-01-21 03:41] LABS: ALBUMIN 2.2 G/DL (3.4-5.0); ANION GAP 7 (8-16); BLOOD UREA NITROGEN 42 MG/DL (7-18); BUN/CREATININE RATIO 30.2 (6.6-38.0); CALCIUM 8.5 MG/DL (8.5-10.1); CHLORIDE 107 MMOL/L (99-107); CREATININE 1.39 MG/DL (0.40-0.90); GLUCOSE 146 MG/DL (70-104); MAGNESIUM 2.3 MG/DL (1.5-2.4); PHOSPHORUS 3.9 MG/DL (2.3-4.5); POTASSIUM 3.8 MMOL/L (3.5-5.1); SODIUM 143 MMOL/L (135-145); TOTAL CARBON DIOXIDE 29.2 MMOL/L (24-32); eGFR 38 ML/MIN
[2019-01-21] MEDS: normal saline 1000ml 1,000 ML IV SCH ×2 (04:30→06:38)
[2019-01-21] MEDS: potassium Cl 20mEq/100mL bag 100 ML IV PRN ×5 (05:00→17:30)
[2019-01-21] MEDS: dexmedetomidin/NS 400mcg/100ml 100 ML IV SCH (05:48)
--- NOTE | 2019-01-21 06:24 | NUR ---
Problems reprioritized. Patient report given, questions answered & plan of care reviewed with Duane Flores RN
[2019-01-21] MEDS: aspirin 81mg tablet.DR PO SCH (08:00)
[2019-01-21] MEDS: labetalol 100mg tablet PO SCH ×2 (08:00→20:00)
[2019-01-21] MEDS: docusate sodium 100mg/10ml UD cup OGT SCH ×2 (08:00→20:00)
[2019-01-21] MEDS: atorvastatin 10mg tablet OGT SCH (08:00)
--- NOTE | 2019-01-21 08:23 | NUR ---
Patient self extubated and removed art line. Placed on nonrebreather. VSS. breathing is regular and unlabored
[2019-01-21] MEDS: pantoprazole 40 MG vial IV SCH (09:06)
[2019-01-21] MEDS: furosemide 40mg/4ml inj IV SCH ×2 (09:06→20:14)
[2019-01-21 10:31] LABS: ABG BASE EXCESS 2.9 mmol/L (-2.0-3.0); ABG HCO3 24.9 mmol/L (22.0-26.0); ABG OXYGEN SATURATION 92.2 % (95-98); ABG PCO2 (T) 29.7 mmHg (32.0-45.0); ABG PH (T) 7.542 (7.350-7.450); ALLEN'S TEST Positive; FCOHb 0.3 % (0.5-1.5); FMetHb 0.3 % (0.3-1.12); FO2Hb 91.6 % (94-100); MINUTE VOLUME 16 L/min; RESPIRATORY RATE 12 b/min; TOTAL HEMOGLOBIN 10.9 G/dl (12.0-16.0)
[2019-01-21] MEDS ORDERED: labetalol 20mg/4ml (5mg/ml) syringe IV PRN (11:15)
--- NOTE | 2019-01-21 11:32 | NUR ---
ABG reported to Dr Infante; he states she doesnt need bipap and to keep sats above 90. patient placed on 12L high flow with sats 95
--- NOTE | 2019-01-21 13:29 | NUR ---
Patient failed nursing bedside swallow. Speech therapy joan NUÑEZ Addendum: 01/21/19 at 1404 by Duane Flores RN joan Xiong
--- NOTE | 2019-01-21 18:45 | NUR ---
Patient in room CICU 2013. I have received report from typing secretary and had the opportunity to ask questions and assume patient care. Pt received awake & alert. Speech is clear, moves all extremities. Oriented to name only. Right arm with weakness. Right IJ quadruple lumen centeral line is intact, transduced & CVP zeroed. No distress noted. On O2 @ 5 L/M NC with O2 saturation 91%.
[2019-01-22] VITALS (24 sets, daily range): BP systolic 108–150; BP diastolic 46–72
--- NOTE | 2019-01-22 00:30 | NUR ---
Awake & alert. Pain free post morphine. Patient is more alert stating she can not only see 1/2 of visual field with both eyes. Pupils are equal @ 2mm bilaterally and react to light. Peripheral vision is absent bilaterally. Patient can only see objects directly in front of her. Speech is clear, oriented to person, place & events. Right arm/hand with minimal gross movement. Sensation is intact throughout. Able to follow simple commands & helps reposition self. Unable to brush teeth or assist in bathing. Complete assistance is required.
[2019-01-22] MEDS: dexamethasone 4mg/ml inj IV SCH (02:12)
[2019-01-22 03:04] LABS: ALBUMIN 2.3 G/DL (3.4-5.0); ANION GAP 9 (8-16); BLOOD UREA NITROGEN 49 MG/DL (7-18); BUN/CREATININE RATIO 34.3 (6.6-38.0); CALCIUM 8.6 MG/DL (8.5-10.1); CHLORIDE 110 MMOL/L (99-107); CREATININE 1.43 MG/DL (0.40-0.90); GLUCOSE 109 MG/DL (70-104); MAGNESIUM 1.8 MG/DL (1.5-2.4); PHOSPHORUS 4.2 MG/DL (2.3-4.5); POTASSIUM 4.2 MMOL/L (3.5-5.1); SODIUM 147 MMOL/L (135-145); TOTAL CARBON DIOXIDE 28.1 MMOL/L (24-32); eGFR 36 ML/MIN
[2019-01-22 03:10] LABS: BASOPHILS % (AUTO) 0 % (0-1); EOSINOPHILS % (AUTO) 0 % (0-6); HEMATOCRIT 27.7 % (35.0-45.0); HEMOGLOBIN 9.3 g/dl (12.0-16.0); LYMPHOCYTES # (AUTO) 0.4 X10'3 (1.1-4.8); LYMPHOCYTES % (AUTO) 2.4 % (21-51); MEAN CORPUSCULAR HEMOGLOBIN 30.6 PG (27.0-31.0); MEAN CORPUSCULAR HGB CONC 33.6 g/dL (33.0-36.5); MEAN CORPUSCULAR VOLUME 91.2 FL (78-98); MEAN PLATELET VOLUME 9.1 FL (7.4-10.4); MONOCYTES # (AUTO) 1.2 X10'3 (0-0.9); MONOCYTES % (AUTO) 7.2 % (2-12); NEUTROPHILS # (AUTO) 14.8 X10'3 (1.8-7.7); NEUTROPHILS % (AUTO) 90.4 % (42-75); PLATELET COUNT 176 X10'3 (140-440); RED BLOOD COUNT 3.03 X10'6 (4.20-5.60); RED CELL DISTRIBUTION WIDTH 15.6 % (11.5-14.5); WHITE BLOOD COUNT 16.4 X10'3 (4.5-11.0)
[2019-01-22] MEDS: ipratropium/albuterol 3ml nebule NEB SCH ×4 (04:13→20:06)
[2019-01-22 04:48] LABS: PLATELET ESTIMATE NORMAL; TOTAL CELLS COUNTED 100
[2019-01-22] MEDS ORDERED: dextrose 5%-1/2 normal saline 1,000 ML IV ONE (04:50)
--- NOTE | 2019-01-22 06:35 | NUR ---
Problems reprioritized. Patient report given, questions answered & plan of care reviewed with Payton Schultz RN.
[2019-01-22] MEDS: atorvastatin 10mg tablet OGT SCH (08:00)
[2019-01-22] MEDS: aspirin 81mg tablet.DR PO SCH (08:00)
[2019-01-22] MEDS: docusate sodium 100mg/10ml UD cup OGT SCH ×2 (08:00→20:00)
[2019-01-22] MEDS: labetalol 100mg tablet PO SCH (08:00)
[2019-01-22] MEDS: furosemide 40mg/4ml inj IV SCH (08:31)
[2019-01-22] MEDS: pantoprazole 40 MG vial IV SCH (08:31)
[2019-01-22] MEDS: potassium Cl 20mEq/100mL bag 100 ML IV PRN (11:27)
--- NOTE | 2019-01-22 12:06 | NUR ---
Asked to assess patients swallowing post extubation failed water with cough has hoarse voice. She is alert and oriented follows commands well had no difficulty with pudding and applesauce tucking chin and double swallowing. Patient wants to eat and feels the pudding and applesauce went down without difficulty. Dr. Infante notified and puree with pudding thick liquids with small bites and close observation and aspiration precaution ordered.
--- NOTE | 2019-01-22 12:17 | NUR ---
Reassessment: Pt self extubated 01/21 and OGTF was pulled. Pt has failed BSS with RN, DISEASE CASE MANAGER RN has been consulted and pt will remain NPO until formal eval per MD notes. Pt remains confused and A/O x 1 per physical assessment, DM and CABG nutrition therapy education remains not appropriate at this time. Will continue to follow. Rec: 1. Advance to heart healthy CHO controlled diet as medically indicated per DISEASE CASE MANAGER RN recs pending BSS 2. Monitor need for ONS with diet advancement 3. routine bowel care 4. Wt per rx 5. A1C prior to d/c once stable given hx prediabetes Addendum: 01/22/19 at [address] Amended: Links added.
[2019-01-22] MEDS: normal saline 1000ml 1,000 ML IV SCH (17:01)
--- NOTE | 2019-01-22 18:04 | NUR ---
Problems reprioritized. Patient report given, questions answered & plan of care reviewed with oncoming shift.
[2019-01-23] VITALS (26 sets, daily range): BP systolic 98–166; BP diastolic 49–91
[2019-01-23] MEDS: ipratropium/albuterol 3ml nebule NEB SCH ×4 (02:59→20:44)
[2019-01-23 03:41] LABS: BASOPHILS % (AUTO) 0.1 % (0-1); EOSINOPHILS # (AUTO) 0.1 X10'3 (0-0.9); EOSINOPHILS % (AUTO) 0.6 % (0-6); HEMOGLOBIN 9.7 g/dl (12.0-16.0); LYMPHOCYTES # (AUTO) 0.8 X10'3 (1.1-4.8); LYMPHOCYTES % (AUTO) 5.1 % (21-51); MEAN CORPUSCULAR HEMOGLOBIN 30.6 PG (27.0-31.0); MEAN CORPUSCULAR HGB CONC 33.5 g/dL (33.0-36.5); MEAN CORPUSCULAR VOLUME 91.2 FL (78-98); MEAN PLATELET VOLUME 8.2 FL (7.4-10.4); MONOCYTES # (AUTO) 1.4 X10'3 (0-0.9); MONOCYTES % (AUTO) 8.7 % (2-12); NEUTROPHILS # (AUTO) 13.3 X10'3 (1.8-7.7); NEUTROPHILS % (AUTO) 85.5 % (42-75); PLATELET COUNT 210 X10'3 (140-440); RED BLOOD COUNT 3.17 X10'6 (4.20-5.60); RED CELL DISTRIBUTION WIDTH 15.7 % (11.5-14.5); WHITE BLOOD COUNT 15.5 X10'3 (4.5-11.0)
[2019-01-23 03:43] LABS: ALANINE AMINOTRANSFERASE 49 U/L (12-78); ALBUMIN 2.2 G/DL (3.4-5.0); ALBUMIN/GLOBULIN RATIO 0.7 (1.1-1.5); ALKALINE PHOSPHATASE 123 IU/L (46-116); ANION GAP 8 (8-16); ASPARTATE AMINO TRANSFERASE 32 U/L (10-37); BILIRUBIN,TOTAL 0.7 MG/DL (0.1-1.0); BLOOD UREA NITROGEN 54 MG/DL (7-18); BUN/CREATININE RATIO 39.7 (6.6-38.0); CALCIUM 8.4 MG/DL (8.5-10.1); CHLORIDE 112 MMOL/L (99-107); CREATININE 1.36 MG/DL (0.40-0.90); GLUCOSE 91 MG/DL (70-104); MAGNESIUM 1.9 MG/DL (1.5-2.4); PHOSPHORUS 3.6 MG/DL (2.3-4.5); SODIUM 149 MMOL/L (135-145); TOTAL CARBON DIOXIDE 29.5 MMOL/L (24-32); TOTAL PROTEIN 5.3 G/DL (6.4-8.2); eGFR 39 ML/MIN
[2019-01-23] MEDS: potassium Cl 20mEq/100mL bag 100 ML IV PRN ×2 (03:59→05:13)
--- NOTE | 2019-01-23 04:28 | NUR ---
Pt is constantly no following sternal precautions. Pt is educated over and over, but seems to be a bit confused and unable to remember education almost immediately after it has been given. She is handed the pillow when lifting, turning, or ambulated and told why she is being given the chest pillow, but the information does not stick in her mind and she grabs and pushes and pulls herself around the bed all throughout the night.
[2019-01-23] MEDS: pantoprazole 40 MG vial IV SCH (07:13)
[2019-01-23] MEDS: atorvastatin 10mg tablet OGT SCH (07:14)
[2019-01-23] MEDS: docusate sodium 100mg/10ml UD cup OGT SCH ×2 (07:14→20:46)
[2019-01-23] MEDS: magnesium 4gm in 100ml NS 100 ML IV PRN (07:14)
[2019-01-23] MEDS ORDERED: furosemide 40mg/4ml inj IV SCH (08:00)
--- NOTE | 2019-01-23 18:40 | NUR ---
I have recd report and assumed care of pt. pt resting in bed is quite fidgety picking at CVL BSCNA in room. assessment complete
[2019-01-23] MEDS: labetalol 100mg tablet PO SCH (20:00)
[2019-01-24] VITALS (16 sets, daily range): BP systolic 97–174; BP diastolic 58–84
--- NOTE | 2019-01-24 03:20 | NUR ---
no change in status noted, able to drink liquids with chin tuck double swallow technic
[2019-01-24] MEDS: ipratropium/albuterol 3ml nebule NEB SCH ×4 (03:52→20:58)
[2019-01-24 04:09] LABS: ALBUMIN 2.4 G/DL (3.4-5.0); ANION GAP 10 (8-16); BLOOD UREA NITROGEN 46 MG/DL (7-18); BUN/CREATININE RATIO 35.4 (6.6-38.0); CALCIUM 8.4 MG/DL (8.5-10.1); CHLORIDE 112 MMOL/L (99-107); GLUCOSE 108 MG/DL (70-104); MAGNESIUM 2.6 MG/DL (1.5-2.4); PHOSPHORUS 3.9 MG/DL (2.3-4.5); SODIUM 147 MMOL/L (135-145); TOTAL CARBON DIOXIDE 25.2 MMOL/L (24-32); eGFR 41 ML/MIN
[2019-01-24 04:20] LABS: BASOPHILS % (AUTO) 0 % (0-1); EOSINOPHILS # (AUTO) 0.1 X10'3 (0-0.9); EOSINOPHILS % (AUTO) 0.5 % (0-6); HEMATOCRIT 29.8 % (35.0-45.0); HEMOGLOBIN 9.8 g/dl (12.0-16.0); LYMPHOCYTES # (AUTO) 0.6 X10'3 (1.1-4.8); LYMPHOCYTES % (AUTO) 3.1 % (21-51); MEAN CORPUSCULAR HGB CONC 32.7 g/dL (33.0-36.5); MEAN CORPUSCULAR VOLUME 91.8 FL (78-98); MEAN PLATELET VOLUME 8.4 FL (7.4-10.4); NEUTROPHILS # (AUTO) 17.7 X10'3 (1.8-7.7); NEUTROPHILS % (AUTO) 91.4 % (42-75); PLATELET COUNT 249 X10'3 (140-440); RED BLOOD COUNT 3.25 X10'6 (4.20-5.60); WHITE BLOOD COUNT 19.4 X10'3 (4.5-11.0)
[2019-01-24 04:45] LABS: PREALBUMIN 15.9 MG/DL (19-36)
[2019-01-24 05:41] LABS: TOTAL CELLS COUNTED 100
[2019-01-24 05:42] LABS: PLATELET ESTIMATE NORMAL
[2019-01-24] MEDS ORDERED: magnesium Cl slow-release 64mg tablet PO PRN (07:30)
[2019-01-24] MEDS ORDERED: magnesium 2GM in 50ml NS 50 ML IV PRN (07:30)
[2019-01-24] MEDS ORDERED: potassium Cl 40MEQ/NS 500ml 500 ML IV PRN ×2 (07:30)
[2019-01-24] MEDS ORDERED: magnesium 4gm in 100ml NS 100 ML IV PRN (07:30)
[2019-01-24] MEDS ORDERED: potassium Cl 20 mEq SR tablet PO PRN ×2 (07:30)
[2019-01-24] MEDS: pantoprazole 40 MG vial IV SCH (07:35)
[2019-01-24] MEDS: docusate sodium 100mg/10ml UD cup OGT SCH ×2 (07:45→21:17)
[2019-01-24] MEDS: magnesium Cl slow-release 64mg tablet PO SCH ×2 (07:47→20:00)
[2019-01-24] MEDS: K and/or MAG REPLACEMENT MC SCH (07:48)
[2019-01-24] MEDS: potassium Cl 20 mEq SR tablet PO SCH ×2 (08:00→20:00)
--- NOTE | 2019-01-24 08:00 | NUR ---
paged speech for eval
[2019-01-24] MEDS: atorvastatin 10mg tablet OGT SCH (08:15)
[2019-01-24] MEDS: labetalol 100mg tablet PO SCH ×3 (08:15→21:17)
--- NOTE | 2019-01-24 12:00 | NUR ---
Clark order Spoke with Dr. Infante about keeping the Clark in as the patient is unable to verbalize the need to urinate or to stand he agreed that clark should stay.
--- NOTE | 2019-01-24 12:45 | NUR ---
Received patient from ICU. Patient arrived via wheelchair and transferred to the bed with 2 person assist. Alert and oriented to name, date of , "hospital", and year, but does also seem confused at times. For example, she told me all about her dog but cannot remember dog's name. Very pleasant. Oriented to room and call light. Bed alarm placed.
--- NOTE | 2019-01-24 13:26 | NUR ---
Paged Speech therapy for swallow eval.
--- NOTE | 2019-01-24 15:44 | NUR ---
Speech therapist at bedside.
[2019-01-24] MEDS: magnesium hydroxide 30ml (MOM) UD suspension OGT PRN ×2 (16:34→21:17)
--- NOTE | 2019-01-24 18:00 | NUR ---
Patient in room MED 313. I have received report from Kristi NEMUANN and had the opportunity to ask questions and assume patient care.
--- NOTE | 2019-01-24 18:00 | NUR ---
Patient in room MED 313. I have received report from Kristi NEUMANN and had the opportunity to ask questions and assume patient care.
--- NOTE | 2019-01-24 18:21 | NUR ---
Problems reprioritized. Patient report given, questions answered & plan of care reviewed with Pilar NEUMANN.
[2019-01-25 02:00] VITALS: BP 128/60
[2019-01-25] MEDS: ipratropium/albuterol 3ml nebule NEB SCH ×4 (02:17→20:07)
[2019-01-25 06:00] VITALS: BP 152/73
[2019-01-25 06:06] LABS: BASOPHILS % (AUTO) 0.1 % (0-1); EOSINOPHILS # (AUTO) 0.3 X10'3 (0-0.9); EOSINOPHILS % (AUTO) 1.4 % (0-6); HEMATOCRIT 26.6 % (35.0-45.0); HEMOGLOBIN 8.7 g/dl (12.0-16.0); LYMPHOCYTES # (AUTO) 0.8 X10'3 (1.1-4.8); LYMPHOCYTES % (AUTO) 3.5 % (21-51); MEAN CORPUSCULAR HEMOGLOBIN 30.4 PG (27.0-31.0); MEAN CORPUSCULAR HGB CONC 32.7 g/dL (33.0-36.5); MEAN CORPUSCULAR VOLUME 92.8 FL (78-98); MEAN PLATELET VOLUME 8.3 FL (7.4-10.4); MONOCYTES # (AUTO) 1.2 X10'3 (0-0.9); MONOCYTES % (AUTO) 5.5 % (2-12); NEUTROPHILS # (AUTO) 19.7 X10'3 (1.8-7.7); NEUTROPHILS % (AUTO) 89.5 % (42-75); PLATELET COUNT 234 X10'3 (140-440); RED BLOOD COUNT 2.87 X10'6 (4.20-5.60); RED CELL DISTRIBUTION WIDTH 16.3 % (11.5-14.5); WHITE BLOOD COUNT 22.1 X10'3 (4.5-11.0)
[2019-01-25 06:14] LABS: ALBUMIN 2.2 G/DL (3.4-5.0); ANION GAP 7 (8-16); BLOOD UREA NITROGEN 46 MG/DL (7-18); BUN/CREATININE RATIO 30.5 (6.6-38.0); CALCIUM 8.2 MG/DL (8.5-10.1); CHLORIDE 113 MMOL/L (99-107); CREATININE 1.51 MG/DL (0.40-0.90); GLUCOSE 130 MG/DL (70-104); MAGNESIUM 2.9 MG/DL (1.5-2.4); SODIUM 147 MMOL/L (135-145); TOTAL CARBON DIOXIDE 26.6 MMOL/L (24-32); eGFR 34 ML/MIN
--- NOTE | 2019-01-25 06:28 | NUR ---
Problems reprioritized. Patient report given, questions answered & plan of care reviewed with Ayaka NEUMANN.
[2019-01-25] MEDS ORDERED: mineral oil 133ml enema RC PRN (07:00)
[2019-01-25] MEDS: magnesium Cl slow-release 64mg tablet PO SCH ×2 (08:00→20:00)
[2019-01-25] MEDS: K and/or MAG REPLACEMENT MC SCH (08:00)
[2019-01-25] MEDS: docusate sodium 100mg/10ml UD cup OGT SCH ×2 (08:00→20:00)
[2019-01-25] MEDS: atorvastatin 10mg tablet OGT SCH (08:05)
[2019-01-25] MEDS: potassium Cl 20 mEq SR tablet PO SCH ×2 (08:05→20:57)
[2019-01-25] MEDS: labetalol 100mg tablet PO SCH ×3 (08:06→20:58)
--- NOTE | 2019-01-25 09:30 | NUR ---
Student documentation: I have reviewed and agree with all interventions, assessments performed and documented by COLLIN, STUDENT NURSE.
--- NOTE | 2019-01-25 10:00 | NUR ---
MINERAL OIL ENEMA GIVEN PATIENT TOLERATED PROCEDURE WELL, LYING ON LEFT SIDE FOR 20MIN BEFORE GETTING UP TO BEDSIDE COMMODE TO ATTEMPT TO HAVE A BM. WHEN PATIENT WAS TRYING TO EXPEL THE STOOL, SHE DESCRIBED A LOT OF "PRESSURE" AT HER RECTUM AREA. PATIENT ASKED RN TO "SEE IF ANY STOOL NEEDED TO BE PULLED OUT". RN ASSISTED IN DISIMPACTING LARGE BALL OF HARD STOOL AND MORE FORMED STOOL. MUCH MORE STOOL PRESENT, SO EJ ADAMSON CALLED AFTERWARD AND RECEIVED ORDER FOR SOAP SUDS ENEMA TO HELP THE REST OF THE STOOL COME OUT.
[2019-01-25 11:30] VITALS: BP 113/56
--- NOTE | 2019-01-25 11:48 | NUR ---
Reassessment: Pt s/p BSS on 01/24 with AUTOMOTIVE DETAILER recs pureed diet with honey thick liquids. Pt with documented 75-100% PO intake meeting nutrient needs. Pt with constipation receiving routine Colace and MoM PRN only given on 01/24. has just ordered pt to receive mineral oil enema PRN, not yet given to pt. Pt with BM on 01/24 per I&O. Pt A/O x 3 and shows signs of confusion per physical assessment, education remains not appropriate at this time. Will continue to follow. Rec: 1. Continue pureed food with honey thick liquids; monitor need for addition of CHO controlled diet; current BG range 91-130 2. Monitor need for ONS 3. routine bowel care 4. Wt per rx 5. A1C prior to d/c once stable given hx prediabetes Addendum: 01/25/19 at [address] Amended: Links added.
--- NOTE | 2019-01-25 14:30 | NUR ---
SOAP WATER ENEMA DONE NOW, PATIENT TOLERATED WELL
[2019-01-25 15:00] VITALS: BP 111/57
--- NOTE | 2019-01-25 15:00 | NUR ---
PATIENT HAVING A LARGE HARD FORMED BM ON BEDSIDE COMMODE
--- NOTE | 2019-01-25 18:36 | NUR ---
Patient in room MED 313. I have received report from Ayaka NEUMANN and had the opportunity to ask questions and assume patient care.
[2019-01-25 21:02] VITALS: BP 119/58
[2019-01-25 22:00] VITALS: BP 128/69
[2019-01-26 02:00] VITALS: BP 98/59
[2019-01-26] MEDS: ipratropium/albuterol 3ml nebule NEB SCH ×3 (03:04→15:35)
[2019-01-26 06:00] VITALS: BP 99/56
--- NOTE | 2019-01-26 06:44 | NUR ---
Problems reprioritized. Patient report given, questions answered & plan of care reviewed with Kristi NEUMANN.
[2019-01-26] MEDS: magnesium Cl slow-release 64mg tablet PO SCH (08:00)
[2019-01-26] MEDS: potassium Cl 20 mEq SR tablet PO SCH (08:00)
[2019-01-26] MEDS: docusate sodium 100mg/10ml UD cup OGT SCH (08:00)
[2019-01-26] MEDS: K and/or MAG REPLACEMENT MC SCH (08:00)
[2019-01-26 08:08] LABS: ALBUMIN 2.1 G/DL (3.4-5.0); ANION GAP 9 (8-16); BLOOD UREA NITROGEN 39 MG/DL (7-18); BUN/CREATININE RATIO 29.8 (6.6-38.0); CALCIUM 8.4 MG/DL (8.5-10.1); CHLORIDE 109 MMOL/L (99-107); CREATININE 1.31 MG/DL (0.40-0.90); GLUCOSE 100 MG/DL (70-104); MAGNESIUM 2.2 MG/DL (1.5-2.4); POTASSIUM 4.4 MMOL/L (3.5-5.1); SODIUM 141 MMOL/L (135-145); TOTAL CARBON DIOXIDE 22.8 MMOL/L (24-32); TRIGLYCERIDES 93 MG/DL (20-135); eGFR 40 ML/MIN
[2019-01-26] MEDS: atorvastatin 10mg tablet OGT SCH (09:12)
[2019-01-26] MEDS: labetalol 100mg tablet PO SCH ×2 (09:12→13:58)
--- NOTE | 2019-01-26 10:20 | NUR ---
Burton catheter removed with no issues.
[2019-01-26 11:00] VITALS: BP 121/61
[2019-01-26 11:22] LABS: BASOPHILS % (AUTO) 0.2 % (0-1); EOSINOPHILS # (AUTO) 0.5 X10'3 (0-0.9); EOSINOPHILS % (AUTO) 2.9 % (0-6); HEMOGLOBIN 8.6 g/dl (12.0-16.0); LYMPHOCYTES # (AUTO) 0.8 X10'3 (1.1-4.8); LYMPHOCYTES % (AUTO) 4.3 % (21-51); MEAN CORPUSCULAR HEMOGLOBIN 30.6 PG (27.0-31.0); MEAN CORPUSCULAR HGB CONC 32.9 g/dL (33.0-36.5); MEAN PLATELET VOLUME 8.2 FL (7.4-10.4); MONOCYTES # (AUTO) 1.2 X10'3 (0-0.9); MONOCYTES % (AUTO) 6.2 % (2-12); NEUTROPHILS % (AUTO) 86.4 % (42-75); PLATELET COUNT 234 X10'3 (140-440); RED CELL DISTRIBUTION WIDTH 16.2 % (11.5-14.5); WHITE BLOOD COUNT 18.5 X10'3 (4.5-11.0)
--- NOTE | 2019-01-26 14:16 | NUR ---
Patient stating that she needs to pee. Assisted patient to bedside comode, but she was unable to urinate. Put her back to bed, then bladder scanned the patient. Scan revealed only 181 ccs of urine. Will continue to monitor patient and encourage fluid intake.
[2019-01-26 15:00] VITALS: BP 92/52
--- NOTE | 2019-01-26 15:25 | NUR ---
Problems reprioritized. Patient report given, questions answered & plan of care reviewed with Anahy NEUMANN at [place].
--- NOTE | 2019-01-26 16:15 | NUR ---
Bladder scanned patient again as she is getting picked up to go to [facility] shortly. Bladder scan revealed 215 ccs of urine. Patient states she does not feel the need to void at this time. Notified [facility] RN of the clark removal and need to void, and they will continue to monitor.
--- NOTE | 2019-01-26 16:45 | NUR ---
Patient picked up by [facility] for transfer to [place]. IV removed with the catheter tip intact. Friend Pilar notified of transfer.
== END 2019-01-26 16:45 | DRG 219 ==
LOC: CICU 2S 14:30 → MED 3N 01-24 12:45
PROVIDERS: ADMIT Thoracic Surgery (Cardiothoracic Vascular Surgery); ATTEND Internal Medicine Critical Care Medicine
PROC: 02QX0ZZ Repair Thoracic Aorta, Ascending/Arch, Open Approach (ICD-10-PCS; 2019-01-15)
PROC: 5A1221Z Performance of Cardiac Output, Continuous (ICD-10-PCS; 2019-01-15)
PROC: 5A1955Z Respiratory Ventilation, Greater than 96 Consecutive Hours (ICD-10-PCS; 2019-01-15)
PROC: 02HV33Z Insertion of Infusion Device into Superior Vena Cava, Percutaneous Approach (ICD-10-PCS; 2019-01-15)
PROC: 30233N1 Transfusion of Nonautologous Red Blood Cells into Peripheral Vein, Percutaneous Approach (ICD-10-PCS; 2019-01-15)
PROC: 30233K1 Transfusion of Nonautologous Frozen Plasma into Peripheral Vein, Percutaneous Approach (ICD-10-PCS; 2019-01-15)
PROC: 30233R1 Transfusion of Nonautologous Platelets into Peripheral Vein, Percutaneous Approach (ICD-10-PCS; 2019-01-15)
PROC: B24BZZ4 Ultrasonography of Heart with Aorta, Transesophageal (ICD-10-PCS; 2019-01-15)
PROC: 5A1223Z Performance of Cardiac Pacing, Continuous (ICD-10-PCS; 2019-01-15)
PROC: 02RX0JZ Replacement of Thoracic Aorta, Ascending/Arch with Synthetic Substitute, Open Approach (ICD-10-PCS; principal; 2019-01-15 14:50)
PROC: 30233N1 Transfusion of Nonautologous Red Blood Cells into Peripheral Vein, Percutaneous Approach (ICD-10-PCS; 2019-01-17)
PROC: 0BH17EZ Insertion of Endotracheal Airway into Trachea, Via Natural or Artificial Opening (ICD-10-PCS; 2019-01-19)
PROC: 5A1945Z Respiratory Ventilation, 24-96 Consecutive Hours (ICD-10-PCS; 2019-01-19)
DX: I71.01 Dissection of thoracic aorta (principal); J96.00 Acute respiratory failure, unspecified whether with hypoxia or hypercapnia; I63.9 Cerebral infarction, unspecified; I77.71 Dissection of carotid artery; I74.11 Embolism and thrombosis of thoracic aorta; J90 Pleural effusion, not elsewhere classified; N17.9 Acute kidney failure, unspecified; G97.81 Other intraoperative complications of nervous system; S14.3XXA Injury of brachial plexus, initial encounter; G83.20 Monoplegia of upper limb affecting unspecified side; D64.9 Anemia, unspecified; J38.4 Edema of larynx; N18.3 Chronic kidney disease, stage 3 (moderate); I13.10 Hypertensive heart and chronic kidney disease without heart failure, with stage 1 through stage 4 chronic kidney disease, or unspecified chronic kidney disease; K59.00 Constipation, unspecified; Y83.8 Other surgical procedures as the cause of abnormal reaction of the patient, or of later complication, without mention of misadventure at the time of the procedure; Z95.1 Presence of aortocoronary bypass graft; Z86.73 Personal history of transient ischemic attack (TIA), and cerebral infarction without residual deficits; Z87.440 Personal history of urinary (tract) infections; Z87.891 Personal history of nicotine dependence; Z82.0 Family history of epilepsy and other diseases of the nervous system; Z82.49 Family history of ischemic heart disease and other diseases of the circulatory system; Y92.239 Unspecified place in hospital as the place of occurrence of the external cause
CPT/HCPCS: 36415; 36600; 70450; 71045; 71250; 80048; 80053; 81001; 82330; 82435; 82570; 82803; 82947; 82948; 83036; 83735; 84100; 84132; 84134; 84295; 84300; 84478; 85018; 85025; 85347; 85384; 85610; 85730; 86022; 86885; 86900; 86901; 86920; 87070; 87207; 88304; 92508; 92616; 93005; 93312; 93325; 94002; 94003; 94640; 94660; 94667; 94668; 94760; 97110; 97116; 97161; 97530; 97535; A6449; A7048; C1751; C1768; C9113; C9132; G0378; J0360; J0690; J1100; J1265; J1644; J1815; J1940; J2001; J2150; J2250; J2270; J2370; J2704; J2720; J2930; J3370; J3475; J3480; J3490; J7030; J7060; J7120; P9012; P9016; P9035; P9045; P9047; P9059

== ENCOUNTER 2019-02-08 16:22 | Inpatient (IN) | payer MEDICARE, BC | END 2019-02-15 13:54 | LOC: ER 16:22 → PCU 3S 02-09 01:27 → MED 3N 02-09 10:08 | PROC: 0W9D00Z Drainage of Pericardial Cavity with Drainage Device, Open Approach (ICD-10-PCS; principal; 2019-02-09 11:51) | PROC: 0W9B0ZZ Drainage of Left Pleural Cavity, Open Approach (ICD-10-PCS; 2019-02-09 11:51) | PROC: 0W9900Z Drainage of Right Pleural Cavity with Drainage Device, Open Approach (ICD-10-PCS; 2019-02-09 11:51) | DX: T81.40XA Infection following a procedure, unspecified, initial encounter (principal); I30.1 Infective pericarditis; J90 Pleural effusion, not elsewhere classified; B96.89 Other specified bacterial agents as the cause of diseases classified elsewhere ==

== ENCOUNTER 2019-05-09 13:50 | Emergency (ER) | payer MEDICARE, BC ==
[~2019-05-09] VITALS: Ht 162.6 cm; Wt 68.2 kg
[~2019-05-09 13:50] MED LIST changes: +ACET-2119 PO; +AMLO5TAB16 PO; +ATOR10TA87 PO; +BISA10SU60 RC; +DOCU100C41 PO; +DOXY100C2 PO; +LABE100T5 PO; +LACT10SO PO; -LIDOcaine 2% (20 mg/ml) 5ml cardiac syringe ONE; -LISI40TA4 PO; -LOP25T PO; +MAGN400O6 PO; -MAGNESIUM SULFATE 4 MEQ/ML (5gm/10ml) injection ONE; +MONT10TA24 PO; +NA P133E4 RC; -NOR5T PO; +POLY17PO10 PO; -PRAV10TA38 PO; +SENN-162 PO; -SUFENTANIL CITRATE 50 MCG/ML 2ml ampule IV ONE; +XAL0.005OS OP; -albumin (human) 25% 100 ML IV solution IV ONE; -aminocaproic acid 250 MG/1 ML inj. ONE; -calcium chloride 100 MG/1 ML inj IV ONE; -heparin 1,000 units/ml 10ml inj ONE; -heparin 10,000 units/1 ML INJ ONE; -methylPREDNISolone sod. succ. 500mg inj ONE; -midazolam 2 mg/2 ml injection ONE; -phenylephrine 10mg/ml inj. ONE; -potassium Cl 2 mEq/ml inj IV ONE; -sodium bicarbonate (8.4%) 1 mEq/ml syringe ONE
[2019-05-09 15:29] LABS: ALANINE AMINOTRANSFERASE 21 U/L (12-78); ALBUMIN 3.4 G/DL (3.4-5.0); ALBUMIN/GLOBULIN RATIO 0.8 (1.1-1.5); ALKALINE PHOSPHATASE 60 IU/L (46-116); ANION GAP 12 (8-16); ASPARTATE AMINO TRANSFERASE 14 U/L (10-37); BILIRUBIN,TOTAL 0.3 MG/DL (0.1-1.0); BLOOD UREA NITROGEN 21 MG/DL (7-18); CALCIUM 8.8 MG/DL (8.5-10.1); CHLORIDE 109 MMOL/L (99-107); GLUCOSE 108 MG/DL (70-104); POTASSIUM 4.6 MMOL/L (3.5-5.1); SODIUM 143 MMOL/L (135-145); TOTAL CARBON DIOXIDE 22.4 MMOL/L (24-32); TOTAL PROTEIN 7.8 G/DL (6.4-8.2); eGFR 37 ML/MIN
[2019-05-09 15:30] LABS: BASOPHILS % (AUTO) 0.6 % (0-1); EOSINOPHILS # (AUTO) 0.2 X10'3 (0-0.9); EOSINOPHILS % (AUTO) 3.2 % (0-6); HEMATOCRIT 33.7 % (35.0-45.0); HEMOGLOBIN 11.1 g/dl (12.0-16.0); LYMPHOCYTES # (AUTO) 1.2 X10'3 (1.1-4.8); LYMPHOCYTES % (AUTO) 16.8 % (21-51); MEAN CORPUSCULAR HEMOGLOBIN 30.3 PG (27.0-31.0); MEAN CORPUSCULAR VOLUME 91.8 FL (78-98); MEAN PLATELET VOLUME 7.7 FL (7.4-10.4); MONOCYTES # (AUTO) 0.7 X10'3 (0-0.9); MONOCYTES % (AUTO) 9.7 % (2-12); NEUTROPHILS # (AUTO) 4.9 X10'3 (1.8-7.7); NEUTROPHILS % (AUTO) 69.7 % (42-75); PLATELET COUNT 240 X10'3 (140-440); RED BLOOD COUNT 3.68 X10'6 (4.20-5.60); RED CELL DISTRIBUTION WIDTH 15.3 % (11.5-14.5)
[2019-05-09 15:31] LABS: PARTIAL THROMBOPLASTIN TIME 28 SECONDS (22-32)
[2019-05-09 15:52] VITALS: BP 118/82
== END 2019-05-09 15:56 | disposition home or self-care (01) ==
LOC: ER 13:52
DX: M25.512 Pain in left shoulder (principal); Z79.899 Other long term (current) drug therapy
CPT/HCPCS: 36415; 71045; 80053; 85025; 85610; 85730; 93005; 99284

== ENCOUNTER → 2021-05-03 | Emergency (ER) | payer MEDICARE, BC ==
[~2021-05-03] VITALS: Ht 188 cm; Wt 72.7 kg
[~2021-05-03] MED LIST changes: -LACT10SO PO; +LACT10SO3 PO; -MONT10TA24 PO; +MONT10TA32 PO; -SENN-162 PO; +SENN-263 PO; +niCARDipine-NS 40mg/200ml IVPB 200 ML IV ONE; +niCARDipine-NS 40mg/200ml IVPB 250 ML IV ONE; +niCARdipine I.V. 50 MG in normal saline 250ml IV soln 230 ML IV ONE
[2021-05-03 13:32] LABS: BASOPHILS # (AUTO) 0.1 X10'3 (0-0.2); BASOPHILS % (AUTO) 1.3 % (0-1); EOSINOPHILS # (AUTO) 0.2 X10'3 (0-0.9); EOSINOPHILS % (AUTO) 4.9 % (0-6); HEMATOCRIT 38.6 % (35.0-45.0); HEMOGLOBIN 12.8 g/dl (12.0-16.0); LYMPHOCYTES # (AUTO) 0.7 X10'3 (1.1-4.8); LYMPHOCYTES % (AUTO) 13.9 % (21-51); MEAN CORPUSCULAR HEMOGLOBIN 31.7 PG (27.0-31.0); MEAN CORPUSCULAR HGB CONC 33.2 g/dL (33.0-36.5); MEAN CORPUSCULAR VOLUME 95.6 FL (78-98); MEAN PLATELET VOLUME 7.9 FL (7.4-10.4); MONOCYTES # (AUTO) 0.6 X10'3 (0-0.9); MONOCYTES % (AUTO) 11.8 % (2-12); NEUTROPHILS # (AUTO) 3.3 X10'3 (1.8-7.7); NEUTROPHILS % (AUTO) 68.1 % (42-75); PLATELET COUNT 177 X10'3 (140-440); RED BLOOD COUNT 4.04 X10'6 (4.20-5.60); RED CELL DISTRIBUTION WIDTH 12.8 % (11.5-14.5); WHITE BLOOD COUNT 4.9 X10'3 (4.5-11.0)
[2021-05-03 13:45] LABS: ALANINE AMINOTRANSFERASE 33 U/L (12-78); ALBUMIN 4.2 G/DL (3.4-5.0); ALBUMIN/GLOBULIN RATIO 1.3 (1.1-1.5); ALKALINE PHOSPHATASE 67 IU/L (46-116); ANION GAP 10 (8-16); ASPARTATE AMINO TRANSFERASE 26 U/L (10-37); BILIRUBIN,TOTAL 0.6 MG/DL (0.1-1.0); BLOOD UREA NITROGEN 31 MG/DL (7-18); BUN/CREATININE RATIO 21.1 (6.6-38.0); CALCIUM 9.1 MG/DL (8.5-10.1); CHLORIDE 108 MMOL/L (99-107); CREATININE 1.47 MG/DL (0.40-0.90); GLUCOSE 104 MG/DL (70-104); POTASSIUM 4.3 MMOL/L (3.5-5.1); SODIUM 145 MMOL/L (135-145); TOTAL CARBON DIOXIDE 26.7 MMOL/L (24-32); TOTAL PROTEIN 7.4 G/DL (6.4-8.2); eGFR 35 ML/MIN
[2021-05-03 13:48] LABS: TROPONIN I < 0.04 NG/ML (0.0-0.05)
--- NOTE | 2021-05-03 17:42 | NUR ---
Patient refused COVID swab. Addendum: 05/03/21 at 1744 by OTIS Stacey MEJIA aware of refusal
--- NOTE | 2021-05-03 19:39 | NUR ---
CALLED [facility] GARDUNO, STILL AWAITING A CALL BACK FROM CT SURGEON
[2021-05-03 21:23] VITALS: BP 114/56
== END | disposition short-term general hospital (02) ==
LOC: ER 12:26
DX: I71.00 Dissection of unspecified site of aorta (principal); Z20.822 Contact with and (suspected) exposure to COVID-19; R42 Dizziness and giddiness; R53.83 Other fatigue; Z79.2 Long term (current) use of antibiotics; Z79.899 Other long term (current) drug therapy
CPT/HCPCS: 36415; 80053; 84484; 85025; 85610; 86885; 86900; 86901; 87635; 93005; 96365; 99285; C9803

== ENCOUNTER 2021-12-08 11:28 | Emergency (ER) | payer MEDICARE ==
[~2021-12-08] VITALS: Ht 162.6 cm; Wt 68.2 kg
[~2021-12-08 11:28] MED LIST changes: -ACET-2119 PO; -AMLO5TAB16 PO; -ATOR10TA87 PO; -BISA10SU60 RC; -DOCU100C41 PO; -DOXY100C2 PO; -LABE100T5 PO; +LABE200T5 PO; -LACT10SO3 PO; +LISI5TAB22 PO; -MAGN400O6 PO; +MECL-226 PO; -MONT10TA32 PO; -NA P133E4 RC; -POLY17PO10 PO; -SENN-263 PO; +XAL0.005OS EACHEYE; -XAL0.005OS OP; -niCARDipine-NS 40mg/200ml IVPB 200 ML IV ONE; -niCARDipine-NS 40mg/200ml IVPB 250 ML IV ONE; -niCARdipine I.V. 50 MG in normal saline 250ml IV soln 230 ML IV ONE
--- NOTE | 2021-12-08 13:45 | NUR ---
PA at bedside. Walked pt to bathroom. She stated that she felt well enough to use the restroom by herself. High BP. aware.
[2021-12-08] MEDS ORDERED: lisinopril 10 MG tablet PO ONE (14:05)
[2021-12-08] MEDS ORDERED: labetalol 100mg tablet PO ONE (14:05)
--- NOTE | 2021-12-08 14:25 | NUR ---
Called pharmacy for 5mg Lisinopril
[2021-12-08] MEDS ORDERED: lisinopril 5mg tablet PO ONE (14:30)
[2021-12-08 14:35] LABS: BASOPHILS % (AUTO) 0.5 % (0-1); EOSINOPHILS # (AUTO) 0.1 X10'3 (0-0.9); EOSINOPHILS % (AUTO) 1.5 % (0-6); HEMATOCRIT 34.9 % (35.0-45.0); HEMOGLOBIN 11.8 g/dl (12.0-16.0); LYMPHOCYTES # (AUTO) 0.6 X10'3 (1.1-4.8); LYMPHOCYTES % (AUTO) 11.2 % (21-51); MEAN CORPUSCULAR HEMOGLOBIN 32.2 PG (27.0-31.0); MEAN CORPUSCULAR HGB CONC 33.9 g/dL (33.0-36.5); MEAN PLATELET VOLUME 8.3 FL (7.4-10.4); MONOCYTES # (AUTO) 0.5 X10'3 (0-0.9); MONOCYTES % (AUTO) 8.7 % (2-12); NEUTROPHILS # (AUTO) 4.2 X10'3 (1.8-7.7); NEUTROPHILS % (AUTO) 78.1 % (42-75); PLATELET COUNT 179 X10'3 (140-440); RED BLOOD COUNT 3.67 X10'6 (4.20-5.60); RED CELL DISTRIBUTION WIDTH 13.4 % (11.5-14.5); WHITE BLOOD COUNT 5.4 X10'3 (4.5-11.0)
[2021-12-08 14:44] LABS: ALANINE AMINOTRANSFERASE 38 U/L (12-78); ALBUMIN/GLOBULIN RATIO 1.2 (1.1-1.5); ALKALINE PHOSPHATASE 55 IU/L (46-116); ANION GAP 9 (8-16); ASPARTATE AMINO TRANSFERASE 23 U/L (10-37); BILIRUBIN,TOTAL 0.7 MG/DL (0.1-1.0); BLOOD UREA NITROGEN 35 MG/DL (7-18); BUN/CREATININE RATIO 26.7 (6.6-38.0); CALCIUM 9.7 MG/DL (8.5-10.1); CHLORIDE 105 MMOL/L (99-107); CREATININE 1.31 MG/DL (0.40-0.90); GLUCOSE 96 MG/DL (70-104); POTASSIUM 4.1 MMOL/L (3.5-5.1); SODIUM 142 MMOL/L (135-145); TOTAL CARBON DIOXIDE 27.7 MMOL/L (24-32); TOTAL PROTEIN 7.3 G/DL (6.4-8.2); eGFR 40 ML/MIN
[2021-12-08 14:51] LABS: MAGNESIUM 2.1 MG/DL (1.5-2.4)
--- NOTE | 2021-12-08 15:38 | NUR ---
Lying: HR 52, BP 182/85 Sitting: HR 56, BP 192/84 Standing: HR 59, BP 197/86 Pt walks with shuffling gait, denies dizziness or nausea, states gait is normal.
[2021-12-08] MEDS ORDERED: normal saline 1000ML IV soln IVB ONE (16:30)
[2021-12-08] MEDS ORDERED: iohexol 350MG/ML 100ml bottle IV ONE (16:37)
[2021-12-08] MEDS ORDERED: iohexol 350 MG/ML 50ML vial IV ONE (16:37)
--- NOTE | 2021-12-08 17:01 | NUR ---
IV started, fluids infusing,warm blankets provided.
[2021-12-08] MEDS ORDERED: MECL-226 PO (18:32)
[2021-12-08] MEDS ORDERED: hydrALAZINE 20mg/ml inj. IV ONE (18:40)
[2021-12-08] MEDS ORDERED: amLODIPine 5mg tablet PO ONE (19:45)
[2021-12-08 20:15] VITALS: BP 159/69
== END 2021-12-08 20:44 | disposition home or self-care (01) ==
LOC: ER 11:28
DX: H81.10 Benign paroxysmal vertigo, unspecified ear (principal); R11.0 Nausea; I71.00 Dissection of unspecified site of aorta; I16.0 Hypertensive urgency; I10 Essential (primary) hypertension; Z86.73 Personal history of transient ischemic attack (TIA), and cerebral infarction without residual deficits; Z98.890 Other specified postprocedural states; Z79.899 Other long term (current) drug therapy
CPT/HCPCS: 36415; 70496; 70498; 71275; 80053; 83735; 83880; 84484; 85025; 93005; 96374; 99285; J0360; J7030; Q9967

== ENCOUNTER 2022-03-04 12:38 | Outpatient (CLI) | payer MEDICARE, BC | END 2022-03-04 23:59 | disposition home or self-care (01) | LOC: CARD DIAG 12:38 | PROVIDERS: ATTEND Internal Medicine Cardiovascular Disease | DX: I08.8 Other rheumatic multiple valve diseases (principal) | CPT/HCPCS: 93306 ==

== ENCOUNTER 2022-06-17 12:46 | Outpatient (CLI) | payer MEDICARE, BC ==
[~2022-06-17 12:46] MED LIST changes: -LABE200T5 PO; +LABE200T8 PO
[2022-06-17 13:37] LABS: CLARITY,URINE CLEAR (Clear); GLUCOSE, URINE NEGATIVE (Neg); KETONES,URINE NEGATIVE (Neg); LEUKOCYTE ESTERASE ,URINE NEGATIVE (Neg); NITRITES, URINE NEGATIVE (Neg); OCCULT BLOOD,URINE SMALL (Neg); PROTEIN,URINE NEGATIVE (Neg); UROBILINOGEN,URINE 0.2 E.U/dL (0.2-1.0)
[2022-06-17 13:54] LABS: COLOR,URINE STRAW (Yellow); UA COLLECTION TYPE CLN CATCH MIDSTREAM
[2022-06-17 13:56] LABS: BACTERIA,URINE NONE SEEN /HPF (Neg); MUCUS STRANDS NONE SEEN /LPF (Neg); RBC,URINE 0-2 /HPF (0-2); SQUAMOUS EPITHELIAL CELL,UR MODERATE /LPF (FEW); WBC,URINE 0-4 /HPF (0-4)
== END 2022-06-17 23:59 | disposition home or self-care (01) ==
LOC: LAB 12:46
PROVIDERS: ATTEND Family Medicine
DX: N30.01 Acute cystitis with hematuria (principal)
CPT/HCPCS: 81001

== ENCOUNTER 2022-08-11 15:50 | Outpatient (CLI) | payer MEDICARE, BC ==
[2022-08-11 17:15] LABS: CLARITY,URINE CLEAR (Clear); COLOR,URINE YELLOW (Yellow); GLUCOSE, URINE NEGATIVE (Neg); KETONES,URINE NEGATIVE (Neg); LEUKOCYTE ESTERASE ,URINE NEGATIVE (Neg); NITRITES, URINE NEGATIVE (Neg); OCCULT BLOOD,URINE NEGATIVE (Neg); PH,URINE 6.5 (4.8-8.0); PROTEIN,URINE NEGATIVE (Neg); UROBILINOGEN,URINE 0.2 E.U/dL (0.2-1.0)
[2022-08-11 17:19] LABS: UA COLLECTION TYPE NON-SPECIFIED
== END 2022-08-11 23:59 | disposition home or self-care (01) ==
LOC: LAB 15:50
PROVIDERS: ATTEND Family Medicine
DX: N30.01 Acute cystitis with hematuria (principal)
CPT/HCPCS: 81003

== ENCOUNTER 2023-05-03 16:24 | Emergency (ER) | payer BC, MEDICARE ==
[~2023-05-03] VITALS: Ht 162.6 cm; Wt 66.8 kg
[2023-05-03 16:31] VITALS: BP 149/96; PULSE 59; RESP 18; TEMP 99.6; O2SAT 98
[2023-05-03] MEDS ORDERED: traMADol 50MG tablet PO ONE (17:25)
[2023-05-03] MEDS ORDERED: acetaminophen 325mg tablet PO ONE (17:25)
[2023-05-03] MEDS ORDERED: ketorolac trometh. 30mg/ml inj. IM ONE (18:05)
== END 2023-05-03 18:45 | disposition home or self-care (01) ==
LOC: ER 16:25
DX: M25.461 Effusion, right knee (principal); R19.7 Diarrhea, unspecified; M25.561 Pain in right knee; I10 Essential (primary) hypertension; Z79.899 Other long term (current) drug therapy; Z79.1 Long term (current) use of non-steroidal anti-inflammatories (NSAID); Z79.2 Long term (current) use of antibiotics; W19.XXXA Unspecified fall, initial encounter; Y93.89 Activity, other specified; Y92.89 Other specified places as the place of occurrence of the external cause; Y99.8 Other external cause status
CPT/HCPCS: 73564; 96372; 99284; J1885

== ENCOUNTER 2024-06-17 18:27 | Emergency (ER) | payer MEDICARE ==
[~2024-06-17] VITALS: Ht 162.6 cm; Wt 55.2 kg
[2024-06-17 19:06] LABS: BASOPHILS % (AUTO) 0.4 % (0-1); EOSINOPHILS # (AUTO) 0.1 X10'3 (0-0.9); EOSINOPHILS % (AUTO) 1.1 % (0-6); HEMATOCRIT 29.5 % (35.0-45.0); HEMOGLOBIN 9.9 g/dl (12.0-16.0); LYMPHOCYTES # (AUTO) 0.5 X10'3 (1.1-4.8); LYMPHOCYTES % (AUTO) 8.3 % (21-51); MEAN CORPUSCULAR HEMOGLOBIN 32.9 PG (27.0-31.0); MEAN CORPUSCULAR HGB CONC 33.5 g/dL (33.0-36.5); MEAN CORPUSCULAR VOLUME 98.3 FL (78-98); MEAN PLATELET VOLUME 7.4 FL (7.4-10.4); MONOCYTES # (AUTO) 0.7 X10'3 (0-0.9); NEUTROPHILS # (AUTO) 4.5 X10'3 (1.8-7.7); NEUTROPHILS % (AUTO) 78.2 % (42-75); PLATELET COUNT 163 X10'3 (140-440); RED CELL DISTRIBUTION WIDTH 13.1 % (11.5-14.5); WHITE BLOOD COUNT 5.8 X10'3 (4.5-11.0)
[2024-06-17 19:20] LABS: ALANINE AMINOTRANSFERASE 24 U/L (12-78); ALBUMIN 3.7 G/DL (3.4-5.0); ALBUMIN/GLOBULIN RATIO 1.1 (1.1-1.5); ALKALINE PHOSPHATASE 41 IU/L (46-116); ANION GAP 12 (8-16); ASPARTATE AMINO TRANSFERASE 20 U/L (10-37); BILIRUBIN,TOTAL 0.5 MG/DL (0.1-1.0); BLOOD UREA NITROGEN 45 MG/DL (7-18); BUN/CREATININE RATIO 23.4 (10.0-20.0); CALCIUM 8.9 MG/DL (8.5-10.1); CHLORIDE 104 MMOL/L (99-107); CREATININE 1.92 MG/DL (0.40-0.90); GLUCOSE 95 MG/DL (70-104); SODIUM 142 MMOL/L (135-145); eCRCL 23 ML/MIN; eGFR 26 ML/MIN
[2024-06-17 19:27] LABS: PRO BRAIN NATRIURETIC PEPTIDE 1726 PG/ML (0-125)
[2024-06-17 19:44] VITALS: TEMP 101
== END 2024-06-17 22:56 | disposition left against medical advice (07) ==
LOC: ER 18:30
DX: R53.1 Weakness (principal); Z53.21 Procedure and treatment not carried out due to patient leaving prior to being seen by health care provider
CPT/HCPCS: 36415; 71045; 80053; 83880; 84484; 85025; 93005